=== PATIENT | female | born 1940 | race Caucasian/White ===

== ENCOUNTER → 2016-09-06 | Day surgery (SDC) | payer MEDICARE, OTHER ==
[~2016-09-06] VITALS: Ht 162.6 cm; Wt 74.8 kg
[~2016-09-06] MED LIST: /WARF25TA; ACETAMINOPHEN 325 MG TAB PO PRN; AMLO2.5T PO; ASPI1TAB PO; ASPI81TA83 OR; AcetaZOLAMIDE 500 MG ER CAP PO ONE; BSS with VANC/TOB/EPI for EYE CASES IR ONE; CALC600T10 PO; CALCTAB22 OR; CYCLOPENTOLATE 2% OPHTH SOLN 2ML BTL As Ordered ONE; CYCLOPENTOLATE 2% OPHTH SOLN 2ML BTL OS ONE; D5W/0.2% SODIUM CHLORIDE 250 ML IV ONE; HEALON DUET (HEALON 10MG/ML 0.55ML & HEALON ENDOCOAT 30MG/ML 0.85ML) As Ordered ONE; INDA125TA PO; KETOROLAC 0.5% OPHTH SOLN OS ONE; LIDOCAINE 1% SDV 5 ML VIAL As Ordered ONE; LIDOCAINE 4% INJ 5 ML AMP OU ONE; MELO15TA4 PO; MELOPOW OR; MIDAZOLAM INJ 2 MG/2 ML VIAL (J2250) As Ordered ONE; MOXIFLOXACIN IN BSS 0.25MG/0.25ML INTRACAMERAL INJ (OR EYE ONLY)(J2280) As Ordered ONE; MULT1TAB10 PO; MULTIVIT OR; OCEAN; OFLOXACIN 0.3 % (OCUFLOX) OPTH SOL 5ML As Ordered ONE; OFLOXACIN 0.3 % (OCUFLOX) OPTH SOL 5ML OS ONE; OMEP40CA2 PO; OYST500T; PERC5TAB8; PHENYLEPHRINE 2.5% OPHTH SOL 2ML As Ordered ONE; PHENYLEPHRINE 2.5% OPHTH SOL 2ML OS ONE; POVIDONE-IODINE 5% OPHTH PREP SOL 30ML As Ordered ONE; PROPARACAINE 0.5% OPHTH SOL 15ML OS PRN; THERGRAN; TRIAMCINOLONE PRES FR 40 MG/ML 1ML(TRIESENCE)(OR EYE ONLY)(J3300 PER 1MG) As Ordered ONE; TRIMETHOBENZAMIDE 300 MG CAP PO PRN; TROPICAMIDE 1% OPHTH SOLN 2ML As Ordered ONE; TROPICAMIDE 1% OPHTH SOLN 2ML OS ONE; TYL325; ZANT150T; ZANT150T OR; ZETI10TA; ZETI10TA OR; fentaNYL 100 MCG/2 ML INJECTION (J3010) As Ordered ONE
[2016-09-06 11:50] VITALS: BP 144/63
== END | disposition home or self-care (01) ==
LOC: M SDC 08:45
PROVIDERS: ATTEND Ophthalmology
DX: H26.9 Unspecified cataract (principal); I13.0 Hypertensive heart and chronic kidney disease with heart failure and stage 1 through stage 4 chronic kidney disease, or unspecified chronic kidney disease; E78.00 Pure hypercholesterolemia, unspecified; R60.0 Localized edema; K21.9 Gastro-esophageal reflux disease without esophagitis; D63.1 Anemia in chronic kidney disease; N18.3 Chronic kidney disease, stage 3 (moderate); R29.898 Other symptoms and signs involving the musculoskeletal system; M12.9 Arthropathy, unspecified; M54.2 Cervicalgia; Z88.8 Allergy status to other drugs, medicaments and biological substances; Z79.899 Other long term (current) drug therapy; Z79.82 Long term (current) use of aspirin; Z90.710 Acquired absence of both cervix and uterus; Z96.1 Presence of intraocular lens; Z96.653 Presence of artificial knee joint, bilateral; Z85.3 Personal history of malignant neoplasm of breast
CPT/HCPCS: 66984; J2250; J2280; J3010; J3300; V2632

== ENCOUNTER → 2016-09-15 | Outpatient (REF) | payer MEDICARE, OTHER ==
[~2016-09-15] MED LIST changes: -ACETAMINOPHEN 325 MG TAB PO PRN; -AcetaZOLAMIDE 500 MG ER CAP PO ONE; -BSS with VANC/TOB/EPI for EYE CASES IR ONE; -CYCLOPENTOLATE 2% OPHTH SOLN 2ML BTL As Ordered ONE; -CYCLOPENTOLATE 2% OPHTH SOLN 2ML BTL OS ONE; -D5W/0.2% SODIUM CHLORIDE 250 ML IV ONE; -HEALON DUET (HEALON 10MG/ML 0.55ML & HEALON ENDOCOAT 30MG/ML 0.85ML) As Ordered ONE; -KETOROLAC 0.5% OPHTH SOLN OS ONE; -LIDOCAINE 1% SDV 5 ML VIAL As Ordered ONE; -LIDOCAINE 4% INJ 5 ML AMP OU ONE; -MIDAZOLAM INJ 2 MG/2 ML VIAL (J2250) As Ordered ONE; -MOXIFLOXACIN IN BSS 0.25MG/0.25ML INTRACAMERAL INJ (OR EYE ONLY)(J2280) As Ordered ONE; -OFLOXACIN 0.3 % (OCUFLOX) OPTH SOL 5ML As Ordered ONE; -OFLOXACIN 0.3 % (OCUFLOX) OPTH SOL 5ML OS ONE; -PHENYLEPHRINE 2.5% OPHTH SOL 2ML As Ordered ONE; -PHENYLEPHRINE 2.5% OPHTH SOL 2ML OS ONE; -POVIDONE-IODINE 5% OPHTH PREP SOL 30ML As Ordered ONE; -PROPARACAINE 0.5% OPHTH SOL 15ML OS PRN; -TRIAMCINOLONE PRES FR 40 MG/ML 1ML(TRIESENCE)(OR EYE ONLY)(J3300 PER 1MG) As Ordered ONE; -TRIMETHOBENZAMIDE 300 MG CAP PO PRN; -TROPICAMIDE 1% OPHTH SOLN 2ML As Ordered ONE; -TROPICAMIDE 1% OPHTH SOLN 2ML OS ONE; -fentaNYL 100 MCG/2 ML INJECTION (J3010) As Ordered ONE
[2016-09-16 09:26] LABS: TOTAL PROTEIN 8.1 GM/DL (6.4-8.2)
[2016-09-16 11:58] LABS: ALBUMIN 4.44 GM/DL (3.29-5.55); ALBUMIN % 54.8 % (55.8-66.1); GAMMA GLOBULIN % 15.6 % (11.1-18.8)
[2016-09-24 00:06] LABS: BETA 2 MICROGLOBULIN 3.2 mg/L (0.6-2.4); FREE KAPPA LIGHT CHAINS SERUM 41.8 mg/L (3.3-19.4); FREE LAMBDA LIGHT CHAINS SERUM 64.3 mg/L (5.7-26.3); KAPPA/LAMBDA RATIO SERUM 0.65 (0.26-1.65)
== END ==
LOC: M LAB REF 16:16
PROVIDERS: ATTEND Internal Medicine Medical Oncology
DX: D47.2 Monoclonal gammopathy (principal)

== ENCOUNTER → 2016-09-15 | Outpatient (CLI) | payer MEDICARE, OTHER ==
--- NOTE | 2016-09-15 16:54 | REP ---
BONE SURVEY: Multiple images are obtained of the skeletal system as part of a bone survey. AP and lateral views of the skull are performed. No fracture or bone lesion is seen. AP and lateral views of the cervical spine are performed. There is no compression fracture. No bone lesions are seen. There is mild to moderate spurring of C4 through C7 with moderate intervening disc space narrowing at C4-5 through C6-7 with subchondral sclerosis. There is diffuse sclerosis of the posterior facet joints. AP and lateral views of the thoracic spine are performed. There is no compression of the thoracic vertebral bodies. There is normal thoracic kyphosis and alignment. There are mild diffuse degenerative disc changes with mild disc space narrowing and subchondral sclerosis at multiple levels. Posterior elements are intact. There is mild curvature towards the right. AP and lateral views of the lumbar spine are performed. There is no compression fracture. There is mild anterior spondylolisthesis of L3 on L4 which appears to be due to posterior facet arthropathy. No definite bone lesions are seen. There is mild narrowing of L3-4 with moderate narrowing, subchondral sclerosis, and vacuum at L4-5 and L5-S1. There is diffuse sclerosis and spurring at the posterior facet joints. Posterior elements appear to be intact. There is mild curvature towards the left. AP view of the pelvis demonstrates no evidence of a bone lesion of fracture. AP view of the right femur is performed. No fracture or bone lesion is seen. 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 AP and lateral views of left femur are performed. No fracture or bone lesion is seen. There is a total left knee prosthesis. AP views of both humeri are performed. Right humerus demonstrates no fracture or bone lesion. Left humerus demonstrates two rounded lucent areas with thin sclerotic borders, 1 in the superior aspect of the humeral head measuring 9 mm in diameter and the other more inferiorly in the region of the humeral neck measuring 6 mm in diameter. Given the sharp zone of transition and thin sclerotic border to both of these lesions, these appear benign. AP view of chest and ribs demonstrate no definite fracture or bone lesion. IMPRESSION: 1. Skeletal survey demonstrates degenerative changes throughout the spine. 2. Two small subcentimeter round lucencies in the proximal left humerus have thin sclerotic borders and are most consistent with benign lesions. No other evidence of bone lesion. Signed by Mina Camacho MD 09/15/2016 08:06 P
== END ==
LOC: M RAD 15:06
PROVIDERS: ATTEND Internal Medicine Medical Oncology
DX: D47.2 Monoclonal gammopathy (principal)

== ENCOUNTER → 2016-11-07 | Outpatient (CLI) | payer MEDICARE, OTHER ==
[~2016-11-07] MED LIST changes: -CALC600T10 PO; +CALC600T31 PO
--- NOTE | 2016-11-07 15:19 | REP ---
LEFT BREAST DIGITAL SCREENING MAMMOGRAM: 11/07/2016. Comparison: 11/05/2015, 11/01/2014, 10/22/2013. Clinical history: Screening examination. She has no current breast complaint. Has a personal history of right mastectomy for breast carcinoma many years ago. No family history of breast cancer. Findings: The breast parenchyma show scattered heterogeneously dense fibroglandular elements in a pattern and distribution unchanged from the multiple prior studies. Scattered small benign appearing calcifications are present of doubtful clinical significance. No dominant masses, suspicious cluster of microcalcifications or secondary signs of malignancy are seen. Mole marker overlies the noon position toward the upper outer quadrant left breast. Impression 1. BI-RADS ACR category 2, mammogram. Benign findings. Stable examination. 2. Follow-up mammogram recommended in 1 year. This mammogram was interpreted with the aid of an FDA-approved computer-aided detection system. The patient states she/he had a clinical breast exam in 11/2015. The patient letter being requested is M1 dense. Signed by Amrit Mesa MD 11/07/2016 09:22 P
== END ==
LOC: M RAD 09:37
PROVIDERS: ATTEND Internal Medicine Medical Oncology
DX: Z12.31 Encounter for screening mammogram for malignant neoplasm of breast (principal); Z85.3 Personal history of malignant neoplasm of breast

== ENCOUNTER → 2016-12-28 | Outpatient (REF) | payer MEDICARE, OTHER ==
[2016-12-28 17:36] LABS: ALBUMIN 3.5 GM/DL (3.2-5.2); ALBUMIN/GLOBULIN RATIO 0.95 (1.00-1.93); BILIRUBIN,DIRECT 0.1 MG/DL (0.0-0.2); BILIRUBIN,TOTAL 0.5 MG/DL (0.2-1.0); CALCIUM LEVEL 8.9 MG/DL (8.8-10.2); CREATININE FOR GFR 1.13 MG/DL (0.55-1.02); GLOMERULAR FILTRATION RATE 49.6 (>39); PHOSPHORUS LEVEL 3.5 MG/DL (2.5-4.9); POTASSIUM SERUM 3.9 MEQ/L (3.5-5.1); TOTAL PROTEIN 7.2 GM/DL (6.4-8.2)
== END ==
LOC: M LABDRAWC 16:32
PROVIDERS: ATTEND Physician Assistant
DX: M51.37 Other intervertebral disc degeneration, lumbosacral region (principal)

== ENCOUNTER → 2017-01-24 | Outpatient (REF) | payer MEDICARE, OTHER ==
[2017-01-24 18:16] LABS: BASO % 0.3 % (0.0-1.0); EOS # 0.1 10^3/uL (0.0-0.50); IMMATURE GRANULOCYTE % 0.2 % (0-0); LYMPH # 2.1 10^3/uL (1.5-4.5); LYMPH % 34.6 % (24.0-44.0); MEAN CORPUSCULAR HEMOGLOBIN 30.7 pg (27.0-33.0); MEAN CORPUSCULAR HGB CONC 31.9 g/dl (32.0-36.5); MEAN CORPUSCULAR VOLUME 96.2 fl (80.0-96.0); MONO # 0.6 10^3/uL (0.0-0.8); NEUTROPHILS # 3.3 10^3/uL (1.8-7.7); NEUTROPHILS % 53.9 % (36.0-66.0); PLATELET COUNT, AUTOMATED 246 10^3/uL (150-450); RED CELL DISTRIBUTION WIDTH 11.9 % (11.5-14.5); WHITE BLOOD COUNT 6.1 10^3/uL (4.0-10.0)
[2017-01-24 19:13] LABS: ALBUMIN 3.6 GM/DL (3.2-5.2); ALBUMIN/GLOBULIN RATIO 0.95 (1.00-1.93); ALKALINE PHOSPHATASE 74 U/L (45-117); ALT/SGPT 24 U/L (12-78); ANION GAP 8 MEQ/L (8-16); AST/SGOT 15 U/L (15-37); BILIRUBIN,TOTAL 0.5 MG/DL (0.2-1.0); BLOOD UREA NITROGEN 29 MG/DL (7-18); CALCIUM LEVEL 9.3 MG/DL (8.8-10.2); CARBON DIOXIDE LEVEL 27 MEQ/L (21-32); CHLORIDE LEVEL 100 MEQ/L (98-107); CREATININE FOR GFR 1.28 MG/DL (0.55-1.02); GLOMERULAR FILTRATION RATE 42.9 (>39); GLUCOSE, FASTING 81 MG/DL (83-110); IMMUNOGLOBULIN A 62.3 MG/DL (70-400); IMMUNOGLOBULIN G 767 MG/DL (681-1648); IMMUNOGLOBULIN M 1280 MG/DL (40-230); POTASSIUM SERUM 4.4 MEQ/L (3.5-5.1); SODIUM LEVEL 135 MEQ/L (136-145); TOTAL PROTEIN 7.4 GM/DL (6.4-8.2)
[2017-01-24 20:38] LABS: REASON FOR REVIEW COMPREHENSIVE REVIEW
[2017-01-26 11:09] LABS: ALBUMIN 4.11 GM/DL (3.29-5.55); ALBUMIN % 55.5 % (55.8-66.1); GAMMA GLOBULIN % 14.6 % (11.1-18.8)
== END ==
LOC: M LAB REF 17:05
PROVIDERS: ATTEND Internal Medicine Medical Oncology
DX: D47.2 Monoclonal gammopathy (principal)

== ENCOUNTER → 2017-06-20 | Outpatient (REF) | payer MEDICARE, OTHER ==
[2017-06-20 18:12] LABS: BASO % 0.4 % (0.0-1.0); EOS # 0.2 10^3/uL (0.0-0.50); EOS % 2.4 % (0.0-3.0); HEMATOCRIT 34.2 % (36.0-47.0); HEMOGLOBIN 10.8 g/dl (12.0-16.0); IMMATURE GRANULOCYTE % 0.3 % (0-3.0); LYMPH # 2.1 10^3/uL (1.5-4.5); LYMPH % 27.8 % (24.0-44.0); MEAN CORPUSCULAR HEMOGLOBIN 30.2 pg (27.0-33.0); MEAN CORPUSCULAR HGB CONC 31.6 g/dl (32.0-36.5); MEAN CORPUSCULAR VOLUME 95.5 fl (80.0-96.0); MONO # 0.6 10^3/uL (0.0-0.8); NEUTROPHILS # 4.5 10^3/uL (1.8-7.7); NEUTROPHILS % 61.1 % (36.0-66.0); PLATELET COUNT, AUTOMATED 236 10^3/uL (150-450); RED BLOOD COUNT 3.58 10^6/uL (4.00-5.40); WHITE BLOOD COUNT 7.4 10^3/uL (4.0-10.0)
[2017-06-20 19:00] LABS: ALBUMIN 3.7 GM/DL (3.2-5.2); ALBUMIN/GLOBULIN RATIO 0.95 (1.00-1.93); ALKALINE PHOSPHATASE 102 U/L (45-117); ALT/SGPT 37 U/L (12-78); ANION GAP 8 MEQ/L (8-16); AST/SGOT 16 U/L (7-37); BILIRUBIN,TOTAL 0.5 MG/DL (0.2-1.0); BLOOD UREA NITROGEN 29 MG/DL (7-18); CALCIUM LEVEL 8.8 MG/DL (8.8-10.2); CARBON DIOXIDE LEVEL 27 MEQ/L (21-32); CHLORIDE LEVEL 103 MEQ/L (98-107); CREATININE FOR GFR 1.25 MG/DL (0.55-1.30); GLUCOSE, FASTING 99 MG/DL (70-100); IMMUNOGLOBULIN A 59.2 MG/DL (70-400); IMMUNOGLOBULIN G 811 MG/DL (681-1648); IMMUNOGLOBULIN M 1370 MG/DL (40-230); SODIUM LEVEL 138 MEQ/L (136-145); TOTAL PROTEIN 7.6 GM/DL (6.4-8.2)
== END ==
LOC: M LABDRAWC 17:24
DX: C88.0 Waldenstrom macroglobulinemia (principal)
CPT/HCPCS: 80053

== ENCOUNTER → 2017-11-08 | Outpatient (CLI) | payer MEDICARE, OTHER | LOC: M RAD 10:04 | DX: Z12.31 Encounter for screening mammogram for malignant neoplasm of breast (principal); Z85.3 Personal history of malignant neoplasm of breast; Z90.11 Acquired absence of right breast and nipple | CPT/HCPCS: 77067 ==

== ENCOUNTER → 2017-11-28 | Outpatient (REF) | payer MEDICARE, OTHER ==
[2017-11-28 20:34] LABS: BLOOD UREA NITROGEN 35 MG/DL (7-18)
[2017-11-28 20:34] LABS: CREATININE FOR GFR 1.38 MG/DL (0.55-1.30); GLOMERULAR FILTRATION RATE 39.3 (>39)
== END ==
LOC: M LAB REF 19:57
DX: M51.37 Other intervertebral disc degeneration, lumbosacral region (principal)
CPT/HCPCS: 82565

== ENCOUNTER → 2018-01-31 | Outpatient (REF) | payer MEDICARE, OTHER ==
[2018-01-31 17:32] LABS: BASO % 0.7 % (0.0-1.0); EOS # 0.1 10^3/uL (0.0-0.50); EOS % 2.2 % (0.0-3.0); HEMATOCRIT 32.8 % (36.0-47.0); HEMOGLOBIN 10.8 g/dl (12.0-15.5); IMMATURE GRANULOCYTE % 0.3 % (0-3.0); LYMPH # 1.8 10^3/uL (1.5-4.5); LYMPH % 30.7 % (24.0-44.0); MEAN CORPUSCULAR HGB CONC 32.9 g/dl (32.0-36.5); MEAN CORPUSCULAR VOLUME 94.3 fl (80.0-96.0); MONO # 0.6 10^3/uL (0.0-0.8); MONO % 10.6 % (0.0-5.0); NEUTROPHILS # 3.3 10^3/uL (1.8-7.7); NEUTROPHILS % 55.5 % (36.0-66.0); PLATELET COUNT, AUTOMATED 256 10^3/uL (150-450); RED BLOOD COUNT 3.48 10^6/uL (4.00-5.40); RED CELL DISTRIBUTION WIDTH 11.9 % (11.5-14.5); WHITE BLOOD COUNT 5.9 10^3/uL (4.0-10.0)
[2018-01-31 18:14] LABS: IMMUNOGLOBULIN G 879 MG/DL (681-1648); IMMUNOGLOBULIN M 1490 MG/DL (40-230)
[2018-02-06 08:06] LABS: SERUM VISCOSITY 1.9 rel.saline (1.6-1.9)
[2018-02-06 08:06] LABS: FREE KAPPA LIGHT CHAINS SERUM 36.9 mg/L (3.3-19.4); FREE LAMBDA LIGHT CHAINS SERUM 64.4 mg/L (5.7-26.3); KAPPA/LAMBDA RATIO SERUM 0.57 (0.26-1.65)
== END ==
LOC: M LABDRAWC 10:48
DX: Z85.3 Personal history of malignant neoplasm of breast (principal)
CPT/HCPCS: 82784

== ENCOUNTER → 2018-05-31 | Outpatient (CLI) | payer MEDICARE, OTHER ==
[~2018-05-31] MED LIST changes: -AMLO2.5T PO; +AMLO2.5T3 PO; +AMOX500C PO; +CELE1CAP7 PO; +MELO15TA28 PO; -MELO15TA4 PO
--- NOTE | 2018-06-01 06:45 | EEG ---
DATE OF PROCEDURE: 05/31/2018 REFERRING PHYSICIAN: Gerri Whitlock DIAGNOSIS: Syncope with incontinence. EE HISTORY: The patient is an 78-year-old woman who had an episode of syncope, collapse with incontinence. She started feeling dizzy as if she would pass out and her son helped her get in the chair, but the patient leaned backwards, passed out and fell sideways out of the chair. She had urinary incontinence. The patient was mumbling, "I am listening to music in my head". This EEG was done to rule out epileptic potential. She is currently taking amlodipine, indapamide, Prilosec, Celebrex, aspirin. INTERPRETATION: The patient was noted to be in awake and drowsy states during this EEG. Resting awake background rhythm consisted of 8 Hz alpha activity measuring 5-15 microvolts in amplitude which was symmetric and reactive to eye opening. Stage I and II sleep were reviewed. Sleep activity was symmetric bilaterally. Hyperventilation and photic stimulation remained unremarkable. EKG revealed normal sinus rhythm. No focal, lateralizing or epileptiform abnormalities were seen. No clinical or electrographic seizures were recorded. CONCLUSION: This EEG in awake, drowsy states, stage I and II sleep is within normal limits. Low voltage background activity is likely related to the patient's age.
== END ==
LOC: M SLEEP 07:59
PROVIDERS: ATTEND Nurse Practitioner Adult Health
DX: R55 Syncope and collapse (principal)

== ENCOUNTER → 2018-07-20 | Outpatient (REF) | payer MEDICARE, OTHER ==
[~2018-07-20] MED LIST changes: -/WARF25TA; -ASPI1TAB PO; +ASPI81TA26 PO; +COUM1TAB18
[2018-07-20 11:38] LABS: BASO % 0.6 % (0.0-1.0); EOS # 0.1 10^3/uL (0.0-0.50); EOS % 2.8 % (0.0-3.0); HEMATOCRIT 33.4 % (36.0-47.0); HEMOGLOBIN 10.9 g/dl (12.0-15.5); LYMPH % 39.9 % (24.0-44.0); MEAN CORPUSCULAR HEMOGLOBIN 31.1 pg (27.0-33.0); MEAN CORPUSCULAR HGB CONC 32.6 g/dl (32.0-36.5); MEAN CORPUSCULAR VOLUME 95.2 fl (80.0-96.0); MONO # 0.5 10^3/uL (0.0-0.8); MONO % 9.3 % (0.0-5.0); NEUTROPHILS # 2.3 10^3/uL (1.8-7.7); PLATELET COUNT, AUTOMATED 292 10^3/uL (150-450); RED BLOOD COUNT 3.51 10^6/uL (4.00-5.40)
[2018-07-20 12:05] LABS: ALBUMIN 3.6 GM/DL (3.2-5.2); ALT/SGPT 28 U/L (12-78); BILIRUBIN,TOTAL 0.5 MG/DL (0.2-1.0); BLOOD UREA NITROGEN 39 MG/DL (7-18); CALCIUM LEVEL 8.8 MG/DL (8.8-10.2); CARBON DIOXIDE LEVEL 25 MEQ/L (21-32); CHLORIDE LEVEL 103 MEQ/L (98-107); GLUCOSE, FASTING 77 MG/DL (70-100); POTASSIUM SERUM 4.1 MEQ/L (3.5-5.1); SODIUM LEVEL 136 MEQ/L (136-145); TOTAL PROTEIN 7.7 GM/DL (6.4-8.2)
[2018-07-20 20:10] LABS: IMMUNOGLOBULIN A 56.1 MG/DL (70-400); IMMUNOGLOBULIN G 882 MG/DL (681-1648)
[2018-07-24 08:25] LABS: FREE KAPPA LIGHT CHAINS SERUM 53.4 mg/L (3.3-19.4); FREE LAMBDA LIGHT CHAINS SERUM 59.1 mg/L (5.7-26.3); KAPPA/LAMBDA RATIO SERUM 0.9 (0.26-1.65); SERUM VISCOSITY 2.1 rel.saline (1.6-1.9)
[2018-07-24 11:06] LABS: ALBUMIN % 54.6 % (55.8-66.1); ALPHA-1-GLOBULIN % 3.7 % (2.9-4.9); ALPHA-1-GLOBULINS 0.28 GM/DL (0.17-0.41); ALPHA-2-GLOBULINS 0.75 GM/DL (0.42-0.99); ALPHA-2-GLOBULINS % 9.8 % (7.1-11.8); BETA-1-GLOBULINS 0.58 GM/DL (0.28-0.60); BETA-1-GLOBULINS % 7.5 % (4.7-7.2); BETA-2-GLOBULINS 0.52 GM/DL (0.19-0.55); BETA-2-GLOBULINS % 6.8 % (3.2-6.5); GAMMA GLOBULIN % 17.6 % (11.1-18.8); GAMMA GLOBULINS 1.36 GM/DL (0.65-1.58)
== END ==
LOC: M LABDRAWC 09:18
PROVIDERS: ATTEND Internal Medicine Hematology & Oncology
DX: D47.2 Monoclonal gammopathy (principal)

== ENCOUNTER → 2018-11-14 | Outpatient (CLI) | payer MEDICARE, OTHER ==
[~2018-11-14] MED LIST changes: +CALCTAB89 PO; +MULTTAB61 PO
--- NOTE | 2018-11-14 11:27 | REP ---
UNILATERAL MAMMOGRAM, LEFT BREAST WITH 3D TOMOSYNTHESIS: HISTORY: Right breast cancer and mastectomy. No family history of breast cancer. COMPARISON: 11/08/2017 as well as other prior exams. MLO and CC views of the left breast performed with 3D tomosynthesis. Moderate fibroglandular tissue is unchanged in its pattern with no new mass or architectural disorder. No clustered microcalcifications are seen. Small axillary lymph nodes are present. IMPRESSION: BIRADS 1: BI-RADS/ACR category 1 mammogram. Negative Mammogram. ACR 1 negative mammogram left breast in this patient status post right mastectomy. Suggest followup mammogram in 1 year. This mammogram was interpreted with the aid of an FDA-approved computer-aided detection system. The patient states that she or he has not had a clinical breast exam in over a year. Patient letter being requested is M1.? Electronically Signed by Mina Camacho MD 11/15/2018 12:31 A
== END ==
LOC: M RAD 10:03
PROVIDERS: ATTEND Internal Medicine
DX: Z12.31 Encounter for screening mammogram for malignant neoplasm of breast (principal); Z85.3 Personal history of malignant neoplasm of breast; Z90.11 Acquired absence of right breast and nipple

== ENCOUNTER → 2018-12-04 | Outpatient (REF) | payer OTHER ==
[2018-12-04 16:47] LABS: CALCIUM LEVEL 9.7 MG/DL (8.8-10.2); CREATININE FOR GFR 1.46 MG/DL (0.55-1.30); GLOMERULAR FILTRATION RATE 36.7 (>32); POTASSIUM SERUM 4.6 MEQ/L (3.5-5.1)
[2018-12-04 16:49] LABS: BASO % 0.6 % (0.0-1.0); EOS # 0.1 10^3/uL (0.0-0.50); EOS % 2.1 % (0.0-3.0); HEMATOCRIT 31.7 % (36.0-47.0); HEMOGLOBIN 10.3 g/dl (12.0-15.5); LYMPH # 2.2 10^3/uL (1.5-4.5); LYMPH % 41.8 % (24.0-44.0); MEAN CORPUSCULAR HEMOGLOBIN 31.6 pg (27.0-33.0); MEAN CORPUSCULAR HGB CONC 32.5 g/dl (32.0-36.5); MEAN CORPUSCULAR VOLUME 97.2 fl (80.0-96.0); MONO # 0.6 10^3/uL (0.0-0.8); MONO % 11.3 % (0.0-5.0); NEUTROPHILS # 2.3 10^3/uL (1.8-7.7); NEUTROPHILS % 43.8 % (36.0-66.0); PLATELET COUNT, AUTOMATED 260 10^3/uL (150-450); RED BLOOD COUNT 3.26 10^6/uL (4.00-5.40); WHITE BLOOD COUNT 5.2 10^3/uL (4.0-10.0)
== END ==
LOC: M LABDRAWC 16:02
PROVIDERS: ATTEND Physician Assistant
DX: M47.816 Spondylosis without myelopathy or radiculopathy, lumbar region (principal); M51.37 Other intervertebral disc degeneration, lumbosacral region

== ENCOUNTER → 2019-01-23 | Outpatient (REF) | payer OTHER ==
[~2019-01-23] MED LIST changes: -OMEP40CA2 PO; +OMEP40CA97 PO
[2019-01-23 16:46] LABS: BASO % 0.7 % (0.0-1.0); EOS # 0.1 10^3/uL (0.0-0.5); EOS % 1.5 % (0.0-3.0); HEMATOCRIT 32.6 % (36.0-47.0); HEMOGLOBIN 10.5 g/dl (12.0-15.5); LYMPH # 1.8 10^3/uL (1.5-5.0); LYMPH % 32.5 % (24.0-44.0); MEAN CORPUSCULAR HEMOGLOBIN 32.3 pg (27.0-33.0); MEAN CORPUSCULAR HGB CONC 32.2 g/dl (32.0-36.5); MEAN CORPUSCULAR VOLUME 100.3 fl (80.0-96.0); MONO # 0.5 10^3/uL (0.0-0.8); MONO % 9.9 % (0.0-5.0); NEUTROPHILS % 55.2 % (36.0-66.0); PLATELET COUNT, AUTOMATED 222 10^3/uL (150-450); RED BLOOD COUNT 3.25 10^6/uL (4.00-5.40); WHITE BLOOD COUNT 5.5 10^3/uL (4.0-10.0)
[2019-01-23 17:26] LABS: ALBUMIN 3.5 GM/DL (3.2-5.2); ALT/SGPT 22 U/L (12-78); BILIRUBIN,TOTAL 0.5 MG/DL (0.2-1.0); BLOOD UREA NITROGEN 29 MG/DL (7-18); CALCIUM LEVEL 9.7 MG/DL (8.8-10.2); CARBON DIOXIDE LEVEL 28 MEQ/L (21-32); CHLORIDE LEVEL 102 MEQ/L (98-107); CREATININE FOR GFR 1.44 MG/DL (0.55-1.30); GLOMERULAR FILTRATION RATE 37.3 (>32); GLUCOSE, FASTING 75 MG/DL (70-100); IMMUNOGLOBULIN A 59.3 MG/DL (70-400); IMMUNOGLOBULIN G 965 MG/DL (681-1648); POTASSIUM SERUM 3.9 MEQ/L (3.5-5.1); SODIUM LEVEL 137 MEQ/L (136-145); TOTAL PROTEIN 7.7 GM/DL (6.4-8.2)
[2019-01-24 12:34] LABS: ALBUMIN 4.12 GM/DL (3.29-5.55); ALBUMIN % 53.5 % (55.8-66.1); ALPHA-1-GLOBULIN % 4.2 % (2.9-4.9); ALPHA-1-GLOBULINS 0.32 GM/DL (0.17-0.41); ALPHA-2-GLOBULINS 0.82 GM/DL (0.42-0.99); ALPHA-2-GLOBULINS % 10.7 % (7.1-11.8); BETA-1-GLOBULINS 0.58 GM/DL (0.28-0.60); BETA-1-GLOBULINS % 7.5 % (4.7-7.2); BETA-2-GLOBULINS 0.67 GM/DL (0.19-0.55); BETA-2-GLOBULINS % 8.7 % (3.2-6.5); GAMMA GLOBULIN % 15.4 % (11.1-18.8); GAMMA GLOBULINS 1.19 GM/DL (0.65-1.58)
[2019-01-26 00:07] LABS: FREE KAPPA LIGHT CHAINS SERUM 52.1 mg/L (3.3-19.4); FREE LAMBDA LIGHT CHAINS SERUM 61.3 mg/L (5.7-26.3); KAPPA/LAMBDA RATIO SERUM 0.85 (0.26-1.65); SERUM VISCOSITY 1.8 rel.saline (1.6-1.9)
== END ==
LOC: M LABDRAWC 16:14
PROVIDERS: ATTEND Nurse Practitioner Family
DX: D47.2 Monoclonal gammopathy (principal)

== ENCOUNTER 2019-03-28 14:54 | Emergency (ER) | payer MEDICARE, OTHER ==
[~2019-03-28] VITALS: Ht 162.6 cm; Wt 79.5 kg
[2019-03-28] MEDS ORDERED: EXCEDRIN MIGRAINE TABLET PO ONE (16:00)
[2019-03-28] MEDS ORDERED: NORC1TAB7 PO (17:14)
[2019-03-28] MEDS ORDERED: APAP325T4 PO (17:14)
[2019-03-28] MEDS ORDERED: NORCO, ANEXSIA 5/325MG TABLET (HYDROcodone/ACETAMINOPHEN) PO ONE (17:30)
[2019-03-28] MEDS ORDERED: NS 1,000 ML IV ONE (18:45)
--- NOTE | 2019-03-28 19:08 | REP ---
CT lumbar spine: 03/28/2019. Indication: Lumbar spine trauma. Comparison: None. Technique: Unenhanced axial CT images of the lumbar spine were performed with coronal and sagittal reconstructions provided. Findings: There is no acute fracture, subluxation or dislocation. Disc space narrowing, vacuum disc phenomenon and endplate degenerative sequelae are present at L3/L4, L4/L5 and L5/S1. There is levoscoliosis of the lumbar spine with the convexity centered at L3. There is minimal anterolisthesis of L3 on L4 secondary to facet arthropathy. Multilevel spondylosis is present with severe narrowing of the spinal canal at L3/L4 and on the left at L4/L5. Aortoiliac atherosclerosis is noted. Impression: No acute osseous injury of the lumbar spine. Advanced degenerative sequelae most pronounced at L3/L4. Scoliosis. Electronically Signed by Jesse Thomas DO 03/28/2019 04:14 P
--- NOTE | 2019-03-28 19:09 | REP ---
Three views pelvis and left hip: 03/28/2019. Indication: Hip pain following fall. Comparison: None. Findings: There is no acute fracture, subluxation or dislocation. No lytic or blastic lesions are present. Arthritic sequelae of the hips bilaterally are noted. Impression: No acute fracture. Electronically Signed by Jesse Thomas DO 03/28/2019 04:30 P
--- NOTE | 2019-03-28 19:09 | REP ---
Four views right hand: 03/28/2019. Indication: Right hand trauma. Comparison: None. Findings: There is no acute fracture, subluxation or dislocation. Diffuse osteopenia is present. Osteoarthritic sequelae are present most pronounced within the second distal PIP. Impression: No acute fracture. Electronically Signed by Jesse Thomas DO 03/28/2019 04:27 P
--- NOTE | 2019-03-28 19:25 | REP ---
CT CHEST WITHOUT IV CONTRAST: CT chest performed without IV contrast. Sagittal and coronal reconstruction images are performed. The lung shows scattered fibrotic changes. Postsurgical change is seen in the right upper lobe with focal bullous change. There is no pneumothorax. No axillary or mediastinal adenopathy is seen. There is no thoracic aortic aneurysm. There is no pleural or pericardial effusion. Heart is mildly enlarged. There is a small hiatal hernia. There is no evidence of a rib fracture. There are mild degenerative changes of the spine. There is mild compression of T12 vertebral body without retropulsion. A small gallstone is seen in the gallbladder without gallbladder wall edema. IMPRESSION: No evidence of rib fracture. Fibrotic changes in the lungs. Mild compression of T12 with no retropulsion of fragments into the spinal canal. Small gallstone in the gallbladder. Electronically Signed by Mina Camacho MD 03/29/2019 04:40 P
[2019-03-28 19:33] LABS: HEMATOCRIT 32.4 % (36.0-47.0); HEMOGLOBIN 10.5 g/dl (12.0-15.5); MEAN CORPUSCULAR HEMOGLOBIN 31.5 pg (27.0-33.0); MEAN CORPUSCULAR HGB CONC 32.4 g/dl (32.0-36.5); MEAN CORPUSCULAR VOLUME 97.3 fl (80.0-96.0); PLATELET COUNT, AUTOMATED 309 10^3/uL (150-450); RED BLOOD COUNT 3.33 10^6/uL (4.00-5.40); WHITE BLOOD COUNT 11.4 10^3/uL (4.0-10.0)
[2019-03-28 19:48] LABS: CALCIUM LEVEL 9.2 MG/DL (8.8-10.2); CREATININE FOR GFR 1.74 MG/DL (0.55-1.30); POTASSIUM SERUM 4.2 MEQ/L (3.5-5.1)
[2019-03-28 21:00] VITALS: BP 129/62
[2019-03-28] MEDS ORDERED: TRAM50TA2 PO (21:01)
== END 2019-03-28 21:41 | disposition home or self-care (01) ==
LOC: EDBD 14:54 → M ED 14:54
DX: S22.080A Wedge compression fracture of T11-T12 vertebra, initial encounter for closed fracture (principal); W01.0XXA Fall on same level from slipping, tripping and stumbling without subsequent striking against object, initial encounter; Y92.89 Other specified places as the place of occurrence of the external cause; I10 Essential (primary) hypertension; E78.5 Hyperlipidemia, unspecified; Z79.899 Other long term (current) drug therapy; Z79.82 Long term (current) use of aspirin; Z88.8 Allergy status to other drugs, medicaments and biological substances

== ENCOUNTER → 2019-07-24 | Outpatient (REF) | payer MEDICARE, OTHER ==
[~2019-07-24] MED LIST changes: +APAP325T4 PO; +NORC1TAB7 PO; +TRAM50TA2 PO
[2019-07-24 16:30] LABS: BASO % 0.7 % (0.0-1.0); EOS # 0.2 10^3/uL (0.0-0.5); EOS % 3.2 % (0.0-3.0); HEMATOCRIT 32.7 % (36.0-47.0); HEMOGLOBIN 10.6 g/dl (12.0-15.5); LYMPH % 37.6 % (24.0-44.0); MEAN CORPUSCULAR HEMOGLOBIN 31.3 pg (27.0-33.0); MEAN CORPUSCULAR HGB CONC 32.4 g/dl (32.0-36.5); MEAN CORPUSCULAR VOLUME 96.5 fl (80.0-96.0); MONO # 0.5 10^3/uL (0.0-0.8); MONO % 10.1 % (0.0-5.0); NEUTROPHILS # 2.6 10^3/uL (1.5-8.5); PLATELET COUNT, AUTOMATED 239 10^3/uL (150-450); RED BLOOD COUNT 3.39 10^6/uL (4.00-5.40); WHITE BLOOD COUNT 5.3 10^3/uL (4.0-10.0)
[2019-07-24 17:06] LABS: ALBUMIN 3.5 GM/DL (3.2-5.2); BILIRUBIN,TOTAL 0.5 MG/DL (0.2-1.0); CALCIUM LEVEL 8.9 MG/DL (8.8-10.2); CREATININE FOR GFR 1.46 MG/DL (0.55-1.30); FREE T4 1.4 NG/DL (0.76-1.46); GLOMERULAR FILTRATION RATE 36.6 (>32); IMMUNOGLOBULIN A 51.3 MG/DL (70-400); PERCENT SATURATION 29.8 % (13.2-45.0); POTASSIUM SERUM 4.2 MEQ/L (3.5-5.1); THYROID STIMULATING HORMONE 1.4 uIU/ML (0.358-3.740); TOTAL PROTEIN 7.7 GM/DL (6.4-8.2)
== END ==
LOC: M LABDRAWC 15:54
PROVIDERS: ATTEND Internal Medicine Hematology & Oncology
DX: C88.0 Waldenstrom macroglobulinemia (principal); Z88.8 Allergy status to other drugs, medicaments and biological substances; Z79.899 Other long term (current) drug therapy

== ENCOUNTER → 2019-08-19 | Outpatient (REF) | payer MEDICARE, OTHER ==
[2019-08-19 12:00] LABS: HEMATOCRIT 33.3 % (36.0-47.0); HEMOGLOBIN 11.2 g/dl (12.0-15.5); MEAN CORPUSCULAR HGB CONC 33.6 g/dl (32.0-36.5); MEAN CORPUSCULAR VOLUME 95.1 fl (80.0-96.0); PLATELET COUNT, AUTOMATED 260 10^3/uL (150-450); WHITE BLOOD COUNT 5.3 10^3/uL (4.0-10.0)
[2019-08-19 12:22] LABS: ALBUMIN 3.7 GM/DL (3.2-5.2); BILIRUBIN,TOTAL 0.5 MG/DL (0.2-1.0); CALCIUM LEVEL 9.7 MG/DL (8.8-10.2); CHOLESTEROL RISK RATIO 3.911 (<5); CREATININE FOR GFR 1.33 MG/DL (0.55-1.30); GLOMERULAR FILTRATION RATE 40.8 (>32); POTASSIUM SERUM 4.3 MEQ/L (3.5-5.1); THYROID STIMULATING HORMONE 1.32 uIU/ML (0.358-3.740); TOTAL PROTEIN 7.8 GM/DL (6.4-8.2)
== END ==
LOC: M LABDRAWC 11:29
PROVIDERS: ATTEND Internal Medicine
DX: I13.10 Hypertensive heart and chronic kidney disease without heart failure, with stage 1 through stage 4 chronic kidney disease, or unspecified chronic kidney disease (principal); N18.3 Chronic kidney disease, stage 3 (moderate); E78.00 Pure hypercholesterolemia, unspecified; E66.3 Overweight; D63.1 Anemia in chronic kidney disease

== ENCOUNTER → 2019-10-25 | Outpatient (CLI) | payer MEDICARE, OTHER ==
--- NOTE | 2019-10-25 16:00 | REP ---
REASON: Edema. FINDINGS: No acute fracture or destructive osseous lesion. Electronically Signed by Miguel Palacio DO 10/25/2019 05:02 P
--- NOTE | 2019-10-25 16:01 | REP ---
REASON FOR EXAM: Lymphedema. FINDINGS: No acute fracture or destructive osseous lesion. There are degenerative changes involving the wrist. Electronically Signed by Miguel Palacio DO 10/25/2019 05:02 P
--- NOTE | 2019-10-25 16:04 | REP ---
REASON: Atraumatic swelling about the 3rd metacarpal. The bones are demineralized. There is evidence of an old healed fracture involving the mid diaphysis of the 4th metacarpal. There are degenerative changes seen throughout the hand and wrist. There is asymmetric intradigital joint space narrowing, particularly affecting the DIP joints of digits 2 through 5 inclusive, seen with subchondral sclerosis and marginal osteophytosis. More mild to moderate intradigital joint space narrowing is seen involving the proximal interphalangeal joints of those digits and the interphalangeal joint of the 1st digit. There are no marginal erosions. There is no periarticular osteopenia. IMPRESSION: Chronic changes, as described above. Electronically Signed by Miguel Palacio DO 10/25/2019 05:02 P
== END ==
LOC: M WUC 12:52
PROVIDERS: ATTEND Internal Medicine Hematology & Oncology
DX: I89.0 Lymphedema, not elsewhere classified (principal)

== ENCOUNTER 2019-10-29 09:30 | Outpatient (RCR) | payer MEDICARE, OTHER | END 2019-11-08 | LOC: M PT 09:30 | PROVIDERS: ATTEND Internal Medicine Hematology & Oncology | DX: I89.0 Lymphedema, not elsewhere classified (principal) ==

== ENCOUNTER 2019-11-27 14:30 | Outpatient (RCR) | payer MEDICARE, OTHER | END 2019-12-09 | LOC: M PT 14:30 | PROVIDERS: ATTEND Orthopaedic Surgery | DX: I89.0 Lymphedema, not elsewhere classified (principal) ==

== ENCOUNTER → 2019-12-18 | Outpatient (CLI) | payer MEDICARE, OTHER ==
--- NOTE | 2020-01-02 15:39 | DEXA ---
AP SPINE L1 - L4 1.053 -1.1 0.7 LT FEMUR TOTAL 0.792 -1.7 0.4 LT NECK 0.790 -1.8 0.4 RT FEMUR TOTAL 0.774 -1.9 0.2 RT NECK 0.764 -2.0 0.3 TOTAL BODY TOTAL OTHER COMMENTS: There is low bone density of the spine and hips. The density of the spine has increased 5.2% since 08/10/2016. The density of the left hip has decreased 7.7% since 08/10/2016. The density of the right hip has decreased 7.2% since 08/10/2016. FOLLOW-UP: Recommendation for the next bone density exam: 2 years. LUIS ANGEL
--- NOTE | 2020-01-07 11:02 | REP ---
LEFT BREAST MAMMOGRAM WITH 3D TOMOSYNTHESIS: HISTORY: Right breast cancer and mastectomy. No family history of breast cancer. TECHNIQUE: MLO and CC views of the left breast are performed in 3D tomosynthesis and compared to multiple prior exams, the most recent of which is 11/14/18. FINDINGS: There is moderate heterogeneous fibroglandular tissue seen in the left breast. [place] breast is B. There is no change since the prior studies. There is no new mass or architectural distortion. No cluster of parenchymal calcifications are seen. There are coarse benign-type calcifications present. IMPRESSION: ACR 1 negative mammogram left breast in this patient with prior right breast cancer and mastectomy. No new mass or cluster of microcalcifications left breast. Recommend follow up mammogram in one year. This mammogram was interpreted with the aid of an FDA approved computer aided detection system. The patient has not had a clinical breast exam in over one year. Mammogram letter 1. MTDD
== END ==
LOC: M WHC 13:55
PROVIDERS: ATTEND Internal Medicine
DX: Z12.31 Encounter for screening mammogram for malignant neoplasm of breast (principal); M81.0 Age-related osteoporosis without current pathological fracture

== ENCOUNTER → 2020-01-24 | Outpatient (REF) | payer MEDICARE, OTHER ==
[2020-01-24 16:49] LABS: BASO # 0.1 10^3/uL (0.0-0.2); EOS # 0.3 10^3/uL (0.0-0.5); EOS % 4.5 % (0.0-3.0); HEMATOCRIT 32.8 % (36.0-47.0); HEMOGLOBIN 10.4 g/dl (12.0-15.5); LYMPH % 32.5 % (24.0-44.0); MEAN CORPUSCULAR HEMOGLOBIN 30.9 pg (27.0-33.0); MEAN CORPUSCULAR HGB CONC 31.7 g/dl (32.0-36.5); MEAN CORPUSCULAR VOLUME 97.3 fl (80.0-96.0); MONO # 0.6 10^3/uL (0.0-0.8); NEUTROPHILS # 3.2 10^3/uL (1.5-8.5); NEUTROPHILS % 51.7 % (36.0-66.0); PLATELET COUNT, AUTOMATED 254 10^3/uL (150-450); RED BLOOD COUNT 3.37 10^6/uL (4.00-5.40); WHITE BLOOD COUNT 6.2 10^3/uL (4.0-10.0)
[2020-01-24 17:53] LABS: ALBUMIN 3.6 GM/DL (3.2-5.2); ALT/SGPT 23 U/L (12-78); BILIRUBIN,TOTAL 0.5 MG/DL (0.2-1.0); BLOOD UREA NITROGEN 37 MG/DL (7-18); CALCIUM LEVEL 9.2 MG/DL (8.8-10.2); CARBON DIOXIDE LEVEL 25 MEQ/L (21-32); CHLORIDE LEVEL 101 MEQ/L (98-107); CREATININE FOR GFR 1.58 MG/DL (0.55-1.30); GLOMERULAR FILTRATION RATE 33.4 (>32); GLUCOSE, FASTING 90 MG/DL (70-100); IMMUNOGLOBULIN A 55.9 MG/DL (70-400); IMMUNOGLOBULIN G 899 MG/DL (681-1648); POTASSIUM SERUM 4.3 MEQ/L (3.5-5.1); SODIUM LEVEL 135 MEQ/L (136-145); TOTAL PROTEIN 7.7 GM/DL (6.4-8.2)
[2020-01-28 13:00] LABS: ALBUMIN % 53.9 % (55.8-66.1); ALPHA-1-GLOBULIN % 4.1 % (2.9-4.9)
[2020-01-28 13:01] LABS: ALBUMIN 4.15 GM/DL (3.29-5.55); ALPHA-1-GLOBULINS 0.32 GM/DL (0.17-0.41); ALPHA-2-GLOBULINS 0.85 GM/DL (0.42-0.99); BETA-1-GLOBULINS 0.57 GM/DL (0.28-0.60); BETA-1-GLOBULINS % 7.4 % (4.7-7.2); BETA-2-GLOBULINS 0.78 GM/DL (0.19-0.55); BETA-2-GLOBULINS % 10.1 % (3.2-6.5); GAMMA GLOBULIN % 13.5 % (11.1-18.8); GAMMA GLOBULINS 1.04 GM/DL (0.65-1.58)
[2020-01-29 07:08] LABS: KAPPA/LAMBDA RATIO SERUM 0.78 (0.26-1.65)
== END ==
LOC: M LABDRAWC 16:08
PROVIDERS: ATTEND Internal Medicine Medical Oncology
DX: C88.0 Waldenstrom macroglobulinemia (principal)

== ENCOUNTER → 2020-02-19 | Outpatient (REF) | payer MEDICARE, OTHER ==
[2020-02-19 11:47] LABS: BASO % 0.6 % (0.0-1.0); EOS # 0.2 10^3/uL (0.0-0.5); EOS % 3.7 % (0.0-3.0); HEMATOCRIT 32.7 % (36.0-47.0); HEMOGLOBIN 10.3 g/dl (12.0-15.5); LYMPH # 1.8 10^3/uL (1.5-5.0); LYMPH % 37.9 % (24.0-44.0); MEAN CORPUSCULAR HEMOGLOBIN 30.6 pg (27.0-33.0); MEAN CORPUSCULAR HGB CONC 31.5 g/dl (32.0-36.5); MONO # 0.4 10^3/uL (0.0-0.8); MONO % 8.9 % (0.0-5.0); NEUTROPHILS # 2.2 10^3/uL (1.5-8.5); NEUTROPHILS % 48.5 % (36.0-66.0); PLATELET COUNT, AUTOMATED 259 10^3/uL (150-450); RED BLOOD COUNT 3.37 10^6/uL (4.00-5.40); WHITE BLOOD COUNT 4.6 10^3/uL (4.0-10.0)
[2020-02-19 12:21] LABS: ALBUMIN 3.8 GM/DL (3.2-5.2); BILIRUBIN,TOTAL 0.5 MG/DL (0.2-1.0); CALCIUM LEVEL 9.9 MG/DL (8.8-10.2); CREATININE FOR GFR 1.61 MG/DL (0.55-1.30); GLOMERULAR FILTRATION RATE 32.7 (>32); POTASSIUM SERUM 4.6 MEQ/L (3.5-5.1); TOTAL PROTEIN 7.7 GM/DL (6.4-8.2)
[2020-02-19 12:29] LABS: TOTAL 25(OH) VITAMIN D 50.3 NG/ML (30.0-100.0)
== END ==
LOC: M LABDRAWC 11:19
PROVIDERS: ATTEND Internal Medicine
DX: I13.10 Hypertensive heart and chronic kidney disease without heart failure, with stage 1 through stage 4 chronic kidney disease, or unspecified chronic kidney disease (principal); D63.1 Anemia in chronic kidney disease; M85.9 Disorder of bone density and structure, unspecified; N18.9 Chronic kidney disease, unspecified

== ENCOUNTER → 2020-05-28 | Outpatient (CLI) | payer MEDICARE, OTHER ==
[~2020-05-28] MED LIST changes: +ACET325T43 PO; +PROHANCE 279.3MG/ML 5ML VIAL As Ordered ONE
--- NOTE | 2020-05-28 17:33 | REP ---
INDICATION: BREAST PAIN. COMPARISON: Comparison mammography December 18, 2019. TECHNIQUE: Three Cherrie MRI imaging was performed with a dedicated breast coil. Axial, coronal, and sagittal T1 and T2 weighted scans were obtained with and without fat saturation in the usual fashion. The study includes dynamically acquired post gadolinium-enhanced imaging with image subtraction. Maximum intensity projection and multi planar reformation imaging is included as well. This study is interpreted with the aid of Bion[employer], an FDA approved computer aided detection (CAD) software program, on a dedicated breast MRI workstation. The gadolinium enhancement dose is 7 mL of intravenous ProHance. FINDINGS: The patient is status post right mastectomy. There is no evidence of axillary lymphadenopathy or internal mammary adenopathy on either side. On high-resolution T1 and T2 weighted scans, there is no evidence of breast mass or other suspicious morphologic abnormality in the left breast. No chest wall lesion is seen on either side. There is moderate fibroglandular tissue. Minimal pattern of background parenchymal enhancement is seen. Dynamically acquired sequential postcontrast images show no suspicious focus of enhancement and washout in either breast to suggest malignancy. Subtraction images show no additional finding.. IMPRESSION: BI-RADS category 2 benign left breastMRI findings. <Electronically signed by Grayson Brown > 05/28/20 [id number]
== END ==
LOC: M RAD 10:33
PROVIDERS: ATTEND Internal Medicine Medical Oncology
DX: N64.4 Mastodynia (principal); Z90.11 Acquired absence of right breast and nipple
CPT/HCPCS: A9576; C8908

== ENCOUNTER → 2020-07-10 | Outpatient (CLI) | payer MEDICARE, OTHER ==
[~2020-07-10] MED LIST changes: -PROHANCE 279.3MG/ML 5ML VIAL As Ordered ONE
--- NOTE | 2020-07-10 15:57 | REP ---
INDICATION: N63.20 LT BREAST MASS. Pain left breast 1 and 8 o'clock. COMPARISON: MRI 05/28/2020. TECHNIQUE: Real-time sonographic evaluation of left breast performed. FINDINGS: No discrete abnormality is seen at the 1 and 8 o'clock positions of the left breast. There is no discrete cystic or solid mass. IMPRESSION: BIRADS/ACR category 1, negative left breast ultrasound as discussed above. No discrete cystic or solid mass at the sites of clinical concern. RECOMMENDATION: Clinical follow-up. <Electronically signed by Mina Camacho > 07/10/20 [id number]
== END ==
LOC: M WHC 13:54
PROVIDERS: ATTEND Surgery
DX: N63.20 Unspecified lump in the left breast, unspecified quadrant (principal); R92.2 Inconclusive mammogram

== ENCOUNTER 2020-08-06 11:49 | Outpatient (RCR) | payer MEDICARE, OTHER | END 2020-08-07 | LOC: M PT 11:49 | PROVIDERS: ATTEND Surgery | DX: I89.0 Lymphedema, not elsewhere classified (principal) ==

== ENCOUNTER → 2020-08-21 | Outpatient (REF) | payer MEDICARE, OTHER ==
[2020-08-21 11:57] LABS: BASO % 0.7 % (0.0-1.0); EOS # 0.2 10^3/uL (0.0-0.5); EOS % 3.2 % (0.0-3.0); HEMATOCRIT 33.1 % (36.0-47.0); HEMOGLOBIN 10.4 g/dl (12.0-15.5); LYMPH # 1.9 10^3/uL (1.5-5.0); LYMPH % 35.6 % (24.0-44.0); MEAN CORPUSCULAR HEMOGLOBIN 30.9 pg (27.0-33.0); MEAN CORPUSCULAR HGB CONC 31.4 g/dl (32.0-36.5); MEAN CORPUSCULAR VOLUME 98.2 fl (80.0-96.0); MONO # 0.4 10^3/uL (0.0-0.8); NEUTROPHILS # 2.8 10^3/uL (1.5-8.5); NEUTROPHILS % 52.3 % (36.0-66.0); PLATELET COUNT, AUTOMATED 277 10^3/uL (150-450); RED BLOOD COUNT 3.37 10^6/uL (4.00-5.40); WHITE BLOOD COUNT 5.4 10^3/uL (4.0-10.0)
[2020-08-21 12:55] LABS: ALBUMIN 3.6 GM/DL (3.2-5.2); BILIRUBIN,TOTAL 0.6 MG/DL (0.2-1.0); CALCIUM LEVEL 9.7 MG/DL (8.8-10.2); CHOLESTEROL RISK RATIO 3.426 (<5); CREATININE FOR GFR 1.24 MG/DL (0.55-1.30); GLOMERULAR FILTRATION RATE 44.1 (>32); POTASSIUM SERUM 4.5 MEQ/L (3.5-5.1); THYROID STIMULATING HORMONE 1.01 uIU/ML (0.358-3.740); TOTAL PROTEIN 7.5 GM/DL (6.4-8.2)
== END ==
LOC: M LABDRAWC 11:19
PROVIDERS: ATTEND Internal Medicine
DX: N18.32 Chronic kidney disease, stage 3b (principal); E78.00 Pure hypercholesterolemia, unspecified; I13.10 Hypertensive heart and chronic kidney disease without heart failure, with stage 1 through stage 4 chronic kidney disease, or unspecified chronic kidney disease

== ENCOUNTER 2021-02-05 09:54 | Outpatient (RCR) | payer MEDICARE, OTHER ==
[~2021-02-05 09:54] MED LIST changes: +OMEP40CA4 PO; -OMEP40CA97 PO
== END 2021-02-07 | disposition still patient (30) ==
LOC: M PT 09:54
PROVIDERS: ATTEND Surgery
DX: I89.0 Lymphedema, not elsewhere classified (principal)

== ENCOUNTER → 2021-02-24 | Outpatient (REF) | payer MEDICARE, OTHER ==
[2021-02-24 11:28] LABS: BASO % 0.5 % (0.0-1.0); EOS # 0.2 10^3/uL (0.0-0.5); EOS % 3.3 % (0.0-3.0); HEMATOCRIT 33.3 % (36.0-47.0); HEMOGLOBIN 10.8 g/dl (12.0-15.5); LYMPH # 2.3 10^3/uL (1.5-5.0); LYMPH % 37.9 % (24.0-44.0); MEAN CORPUSCULAR HEMOGLOBIN 31.3 pg (27.0-33.0); MEAN CORPUSCULAR HGB CONC 32.4 g/dl (32.0-36.5); MEAN CORPUSCULAR VOLUME 96.5 fl (80.0-96.0); MONO # 0.5 10^3/uL (0.0-0.8); MONO % 8.4 % (2.0-8.0); NEUTROPHILS % 49.6 % (36.0-66.0); PLATELET COUNT, AUTOMATED 286 10^3/uL (150-450); RED BLOOD COUNT 3.45 10^6/uL (4.00-5.40)
[2021-02-24 11:52] LABS: ALBUMIN 3.5 GM/DL (3.2-5.2); BILIRUBIN,TOTAL 0.6 MG/DL (0.2-1.0); CALCIUM LEVEL 9.7 MG/DL (8.8-10.2); CHOLESTEROL RISK RATIO 3.733 (<5); CREATININE FOR GFR 1.36 MG/DL (0.55-1.30); GLOMERULAR FILTRATION RATE 39.6 (>32); POTASSIUM SERUM 4.3 MEQ/L (3.5-5.1); TOTAL PROTEIN 7.7 GM/DL (6.4-8.2)
== END ==
LOC: M LABDRAWC 11:10
PROVIDERS: ATTEND Internal Medicine
DX: E78.00 Pure hypercholesterolemia, unspecified (principal)

== ENCOUNTER → 2021-05-07 | Outpatient (REF) | payer MEDICARE, OTHER | LOC: M LABDRAWC 15:39 | PROVIDERS: ATTEND Internal Medicine Medical Oncology | DX: C88.0 Waldenstrom macroglobulinemia (principal) ==

== ENCOUNTER → 2021-06-28 | Outpatient (CLI) | payer MEDICARE, OTHER | LOC: M WHC 09:53 | PROVIDERS: ATTEND Internal Medicine Medical Oncology | DX: Z12.31 Encounter for screening mammogram for malignant neoplasm of breast (principal); Z85.3 Personal history of malignant neoplasm of breast ==

== ENCOUNTER 2021-08-06 09:51 | Outpatient (RCR) | payer MEDICARE, OTHER | END 2021-08-07 | LOC: M PT 09:51 | PROVIDERS: ATTEND Surgery | DX: I89.0 Lymphedema, not elsewhere classified (principal) ==

== ENCOUNTER → 2021-09-15 | Outpatient (REF) | payer MEDICARE, OTHER ==
[2021-09-15 11:43] LABS: HEMATOCRIT 33.6 % (36.0-47.0); MEAN CORPUSCULAR HEMOGLOBIN 31.2 pg (27.0-33.0); MEAN CORPUSCULAR HGB CONC 32.7 g/dl (32.0-36.5); MEAN CORPUSCULAR VOLUME 95.2 fl (80.0-96.0); PLATELET COUNT, AUTOMATED 230 10^3/uL (150-450); RED BLOOD COUNT 3.53 10^6/uL (4.00-5.40); WHITE BLOOD COUNT 5.2 10^3/uL (4.0-10.0)
[2021-09-15 12:23] LABS: ALBUMIN 3.4 GM/DL (3.2-5.2); BILIRUBIN,TOTAL 0.5 MG/DL (0.2-1.0); CALCIUM LEVEL 9.1 MG/DL (8.8-10.2); CHOLESTEROL RISK RATIO 3.424 (<5); CREATININE FOR GFR 1.4 MG/DL (0.55-1.30); FREE T4 1.2 NG/DL (0.76-1.46); GLOMERULAR FILTRATION RATE 38.2 (>32); POTASSIUM SERUM 4.7 MEQ/L (3.5-5.1); THYROID STIMULATING HORMONE 1.25 uIU/ML (0.358-3.740)
== END ==
LOC: M LABDRAWC 11:15
PROVIDERS: ATTEND Internal Medicine
DX: N18.30 Chronic kidney disease, stage 3 unspecified (principal); D63.1 Anemia in chronic kidney disease; Z68.27 Body mass index [BMI] 27.0-27.9, adult; Z79.899 Other long term (current) drug therapy

== ENCOUNTER → 2021-12-10 | Outpatient (REF) | payer MEDICARE, OTHER ==
[~2021-12-10] MED LIST changes: +INDA1.253 PO; -INDA125TA PO
[2021-12-10 18:27] LABS: BASO % 0.5 % (0.0-1.0); EOS # 0.2 10^3/uL (0.0-0.5); EOS % 3.5 % (0.0-3.0); HEMATOCRIT 31.9 % (36.0-47.0); HEMOGLOBIN 10.4 g/dl (12.0-15.5); LYMPH # 1.8 10^3/uL (1.5-5.0); LYMPH % 31.8 % (24.0-44.0); MEAN CORPUSCULAR HGB CONC 32.6 g/dl (32.0-36.5); MEAN CORPUSCULAR VOLUME 98.2 fl (80.0-96.0); MONO # 0.5 10^3/uL (0.0-0.8); MONO % 9.1 % (2.0-8.0); NEUTROPHILS # 3.1 10^3/uL (1.5-8.5); NEUTROPHILS % 54.7 % (36.0-66.0); PLATELET COUNT, AUTOMATED 241 10^3/uL (150-450); RED BLOOD COUNT 3.25 10^6/uL (4.00-5.40); WHITE BLOOD COUNT 5.7 10^3/uL (4.0-10.0)
[2021-12-10 19:42] LABS: ALBUMIN 3.5 GM/DL (3.2-5.2); ALT/SGPT 28 U/L (12-78); BILIRUBIN,TOTAL 0.4 MG/DL (0.2-1.0); BLOOD UREA NITROGEN 31 MG/DL (7-18); CALCIUM LEVEL 8.8 MG/DL (8.8-10.2); CARBON DIOXIDE LEVEL 22 MEQ/L (21-32); CHLORIDE LEVEL 101 MEQ/L (98-107); CREATININE FOR GFR 1.43 MG/DL (0.55-1.30); FERRITIN 100 NG/ML (8-252); GLOMERULAR FILTRATION RATE 37.3 (>32); GLUCOSE, FASTING 112 MG/DL (70-100); IMMUNOGLOBULIN G 914 MG/DL (681-1648); IRON (FE) 77 UG/DL (50-170); PERCENT SATURATION 25.8 % (13.2-45.0); POTASSIUM SERUM 4.5 MEQ/L (3.5-5.1); SODIUM LEVEL 131 MEQ/L (136-145); TOTAL IRON BINDING CAPACITY 299 UG/DL (250-450); TOTAL PROTEIN 7.4 GM/DL (6.4-8.2)
[2021-12-15 12:51] LABS: ALBUMIN % 56.7 % (55.8-66.1); ALPHA-1-GLOBULIN % 3.5 % (2.9-4.9); ALPHA-2-GLOBULINS % 9.8 % (7.1-11.8); BETA-1-GLOBULINS % 7.3 % (4.7-7.2); BETA-2-GLOBULINS % 9.9 % (3.2-6.5); GAMMA GLOBULIN % 12.8 % (11.1-18.8)
[2021-12-15 12:52] LABS: ALPHA-1-GLOBULINS 0.26 GM/DL (0.17-0.41); ALPHA-2-GLOBULINS 0.73 GM/DL (0.42-0.99); BETA-1-GLOBULINS 0.54 GM/DL (0.28-0.60); BETA-2-GLOBULINS 0.73 GM/DL (0.19-0.55); GAMMA GLOBULINS 0.95 GM/DL (0.65-1.58)
[2021-12-16 16:08] LABS: FREE LAMBDA LIGHT CHAINS SERUM 59.7 mg/L (5.7-26.3); KAPPA/LAMBDA RATIO SERUM 0.97 (0.26-1.65); SERUM VISCOSITY 1.9 rel.saline (1.4-2.1)
== END ==
LOC: M LABDRAWC 16:33
PROVIDERS: ATTEND Internal Medicine Medical Oncology
DX: C88.0 Waldenstrom macroglobulinemia (principal); Z79.899 Other long term (current) drug therapy

== ENCOUNTER → 2022-03-23 | Outpatient (REF) | payer MEDICARE, OTHER ==
[2022-03-23 11:41] LABS: BASO % 0.6 % (0.0-1.0); EOS # 0.1 10^3/uL (0.0-0.5); EOS % 2.8 % (0.0-3.0); HEMATOCRIT 33.4 % (36.0-47.0); HEMOGLOBIN 10.5 g/dl (12.0-15.5); LYMPH # 2.4 10^3/uL (1.5-5.0); LYMPH % 47.3 % (24.0-44.0); MEAN CORPUSCULAR HEMOGLOBIN 30.7 pg (27.0-33.0); MEAN CORPUSCULAR HGB CONC 31.4 g/dl (32.0-36.5); MEAN CORPUSCULAR VOLUME 97.7 fl (80.0-96.0); MONO # 0.5 10^3/uL (0.0-0.8); MONO % 10.5 % (2.0-8.0); NEUTROPHILS % 38.4 % (36.0-66.0); PLATELET COUNT, AUTOMATED 254 10^3/uL (150-450); RED BLOOD COUNT 3.42 10^6/uL (4.00-5.40); WHITE BLOOD COUNT 5.1 10^3/uL (4.0-10.0)
[2022-03-23 12:09] LABS: ALBUMIN 3.4 G/DL (3.2-5.2); BILIRUBIN,TOTAL 0.5 MG/DL (0.3-1.2); CALCIUM LEVEL 9.4 MG/DL (8.3-10.6); CHOLESTEROL RISK RATIO 3.82 (<5); CREATININE FOR GFR 1.17 MG/DL (0.55-1.30); HDL CHOLESTEROL 54.7 MG/DL (>40); LDL CHOLESTEROL 130.5 MG/DL (<100); POTASSIUM SERUM 4.4 MMOL/L (3.5-5.1); TOTAL PROTEIN 7.5 G/DL (5.7-8.2)
[2022-03-23 12:11] LABS: THYROID STIMULATING HORMONE 0.819 uIU/ML (0.55-4.78)
== END ==
LOC: M LABDRAWC 11:12
PROVIDERS: ATTEND Internal Medicine
DX: I13.10 Hypertensive heart and chronic kidney disease without heart failure, with stage 1 through stage 4 chronic kidney disease, or unspecified chronic kidney disease (principal); E78.00 Pure hypercholesterolemia, unspecified; D64.9 Anemia, unspecified; E03.9 Hypothyroidism, unspecified

== ENCOUNTER → 2022-05-10 | Outpatient (REF) | payer MEDICARE, OTHER | LOC: M LAB REF 16:11 | PROVIDERS: ATTEND Internal Medicine | DX: R74.8 Abnormal levels of other serum enzymes (principal) ==

== ENCOUNTER → 2022-05-27 | Outpatient (REF) | payer MEDICARE, OTHER | LOC: M LAB REF 15:57 | PROVIDERS: ATTEND Internal Medicine | DX: C88.0 Waldenstrom macroglobulinemia (principal) ==

== ENCOUNTER → 2022-06-06 | Outpatient (REF) | payer MEDICARE, OTHER ==
[2022-06-06 17:44] LABS: BASO % 0.7 % (0.0-1.0); EOS # 0.1 10^3/uL (0.0-0.5); EOS % 2.1 % (0.0-3.0); HEMATOCRIT 32.3 % (36.0-47.0); HEMOGLOBIN 10.3 g/dl (12.0-15.5); LYMPH # 1.8 10^3/uL (1.5-5.0); MEAN CORPUSCULAR HEMOGLOBIN 31.6 pg (27.0-33.0); MEAN CORPUSCULAR HGB CONC 31.9 g/dl (32.0-36.5); MEAN CORPUSCULAR VOLUME 99.1 fl (80.0-96.0); MONO # 0.4 10^3/uL (0.0-0.8); MONO % 6.9 % (2.0-8.0); NEUTROPHILS # 3.7 10^3/uL (1.5-8.5); NEUTROPHILS % 60.1 % (36.0-66.0); PLATELET COUNT, AUTOMATED 290 10^3/uL (150-450); RED BLOOD COUNT 3.26 10^6/uL (4.00-5.40); WHITE BLOOD COUNT 6.1 10^3/uL (4.0-10.0)
[2022-06-06 18:15] LABS: IMMUNOGLOBULIN A 92.6 MG/DL (40-350)
[2022-06-06 18:16] LABS: ALBUMIN 3.5 G/DL (3.2-5.2); BILIRUBIN,TOTAL 0.4 MG/DL (0.3-1.2); CREATININE FOR GFR 1.17 MG/DL (0.55-1.30); GLOMERULAR FILTRATION RATE 46.9 (>32); POTASSIUM SERUM 4.1 MMOL/L (3.5-5.1); TOTAL PROTEIN 7.2 G/DL (5.7-8.2)
== END ==
LOC: M LABDRAWC 17:08
PROVIDERS: ATTEND Internal Medicine Medical Oncology
DX: C88.0 Waldenstrom macroglobulinemia (principal)

== ENCOUNTER → 2022-06-17 | Outpatient (CLI) | payer MEDICARE, OTHER ==
[~2022-06-17] MED LIST changes: +LOSA25TA13; +PROHANCE 279.3MG/ML 15ML VIAL As Ordered ONE
== END ==
LOC: M RAD 12:23
PROVIDERS: ATTEND Internal Medicine
DX: G50.8 Other disorders of trigeminal nerve (principal); R55 Syncope and collapse; R94.02 Abnormal brain scan
CPT/HCPCS: 70544; 70553; A9576

== ENCOUNTER → 2022-06-30 | Outpatient (CLI) | payer MEDICARE, OTHER ==
[~2022-06-30] MED LIST changes: -PROHANCE 279.3MG/ML 15ML VIAL As Ordered ONE
== END ==
LOC: M WHC 09:48
PROVIDERS: ATTEND Internal Medicine
DX: Z12.31 Encounter for screening mammogram for malignant neoplasm of breast (principal); Z85.3 Personal history of malignant neoplasm of breast; Z90.11 Acquired absence of right breast and nipple

== ENCOUNTER → 2022-08-10 | Outpatient (REF) | payer MEDICARE, OTHER ==
[2022-08-10 18:32] LABS: CALCIUM LEVEL 9.7 MG/DL (8.3-10.6); CREATININE FOR GFR 1.26 MG/DL (0.55-1.30); GLOMERULAR FILTRATION RATE 43.1 (>32); POTASSIUM SERUM 5.2 MMOL/L (3.5-5.1)
== END ==
LOC: M LABDRAWC 17:06
PROVIDERS: ATTEND Internal Medicine
DX: I10 Essential (primary) hypertension (principal)

== ENCOUNTER 2022-08-19 14:03 | Outpatient (RCR) | payer MEDICARE, OTHER | END 2022-09-07 | LOC: M PT 14:03 | PROVIDERS: ATTEND Surgery | DX: I89.0 Lymphedema, not elsewhere classified (principal) ==

== ENCOUNTER → 2022-08-31 | Outpatient (REF) | payer MEDICARE, OTHER | LOC: M LABDRAWC 11:15 | PROVIDERS: ATTEND Internal Medicine | DX: I95.1 Orthostatic hypotension (principal) ==

== ENCOUNTER → 2022-08-31 | Outpatient (REF) | payer MEDICARE, OTHER ==
[2022-08-31 12:25] LABS: BASO % 0.4 % (0.0-1.0); EOS # 0.2 10^3/uL (0.0-0.5); EOS % 2.9 % (0.0-3.0); HEMATOCRIT 31.1 % (36.0-47.0); HEMOGLOBIN 10.3 g/dl (12.0-15.5); LYMPH # 2.1 10^3/uL (1.5-5.0); LYMPH % 41.1 % (24.0-44.0); MEAN CORPUSCULAR HEMOGLOBIN 31.5 pg (27.0-33.0); MEAN CORPUSCULAR HGB CONC 33.1 g/dl (32.0-36.5); MEAN CORPUSCULAR VOLUME 95.1 fl (80.0-96.0); MONO # 0.5 10^3/uL (0.0-0.8); NEUTROPHILS # 2.4 10^3/uL (1.5-8.5); NEUTROPHILS % 46.4 % (36.0-66.0); PLATELET COUNT, AUTOMATED 297 10^3/uL (150-450); RED BLOOD COUNT 3.27 10^6/uL (4.00-5.40); WHITE BLOOD COUNT 5.2 10^3/uL (4.0-10.0)
[2022-08-31 12:28] LABS: ALBUMIN 3.6 G/DL (3.2-5.2); BILIRUBIN,TOTAL 0.5 MG/DL (0.3-1.2); CALCIUM LEVEL 9.3 MG/DL (8.3-10.6); CREATININE FOR GFR 1.34 MG/DL (0.55-1.30); GLOMERULAR FILTRATION RATE 40.1 (>32); IMMUNOGLOBULIN A 58.3 MG/DL (40-350); POTASSIUM SERUM 4.9 MMOL/L (3.5-5.1); TOTAL PROTEIN 7.1 G/DL (5.7-8.2)
[2022-08-31 13:02] LABS: IMMUNOGLOBULIN M 1207.3 MG/DL (50-300)
== END ==
LOC: M LABDRAWC 11:17
PROVIDERS: ATTEND Internal Medicine Medical Oncology
DX: C88.0 Waldenstrom macroglobulinemia (principal); I95.1 Orthostatic hypotension

== ENCOUNTER 2022-11-19 11:01 | Emergency (ER) | payer MEDICARE, OTHER ==
[~2022-11-19] VITALS: Ht 162.6 cm; Wt 74.1 kg
[2022-11-19 12:11] LABS: BASO % 0.1 % (0.0-1.0); EOS # 0.1 10^3/uL (0.0-0.5); EOS % 0.6 % (0.0-3.0); HEMATOCRIT 26.3 % (36.0-47.0); HEMOGLOBIN 8.5 g/dl (12.0-15.5); LYMPH # 1.5 10^3/uL (1.5-5.0); LYMPH % 15.1 % (24.0-44.0); MEAN CORPUSCULAR HEMOGLOBIN 31.1 pg (27.0-33.0); MEAN CORPUSCULAR HGB CONC 32.3 g/dl (32.0-36.5); MEAN CORPUSCULAR VOLUME 96.3 fl (80.0-96.0); MONO # 0.8 10^3/uL (0.0-0.8); NEUTROPHILS # 7.2 10^3/uL (1.5-8.5); NEUTROPHILS % 75.1 % (36.0-66.0); PLATELET COUNT, AUTOMATED 426 10^3/uL (150-450); RED BLOOD COUNT 2.73 10^6/uL (4.00-5.40); WHITE BLOOD COUNT 9.6 10^3/uL (4.0-10.0)
[2022-11-19 12:40] LABS: ALBUMIN 2.2 G/DL (3.2-5.2); BILIRUBIN,TOTAL 0.7 MG/DL (0.3-1.2); CALCIUM LEVEL 9.3 MG/DL (8.3-10.6); CREATININE FOR GFR 1.25 MG/DL (0.55-1.30); GLOMERULAR FILTRATION RATE 43.5 (>32); POTASSIUM SERUM 5.8 MMOL/L (3.5-5.1); TOTAL PROTEIN 6.8 G/DL (5.7-8.2)
[2022-11-19] MEDS ORDERED: ONDANSETRON 4MG 2ML VIAL IV ONE (13:55)
[2022-11-19] MEDS: MORPHINE 2 MG/ML 1ML VIAL IV PRN ×2 (13:59→17:31)
[2022-11-19] MEDS: NS 1,000 ML IV SCH ×2 (18:54→19:13)
[2022-11-19 19:19] VITALS: BP 153/67; TEMP 99; O2SAT 88
== END 2022-11-19 19:24 | disposition short-term general hospital (02) ==
LOC: EDBD 11:01 → M ED 11:01
DX: M54.9 Dorsalgia, unspecified (principal); R32 Unspecified urinary incontinence; I12.9 Hypertensive chronic kidney disease with stage 1 through stage 4 chronic kidney disease, or unspecified chronic kidney disease; E78.00 Pure hypercholesterolemia, unspecified; N18.9 Chronic kidney disease, unspecified; C91.11 Chronic lymphocytic leukemia of B-cell type in remission; Z85.3 Personal history of malignant neoplasm of breast; Z88.8 Allergy status to other drugs, medicaments and biological substances; Z79.82 Long term (current) use of aspirin; Z79.899 Other long term (current) drug therapy

== ENCOUNTER → 2022-11-25 | Outpatient (REF) | payer MEDICARE, OTHER ==
[2022-11-25 11:49] LABS: BASO % 0.2 % (0.0-1.0); EOS # 0.1 10^3/uL (0.0-0.5); EOS % 0.8 % (0.0-3.0); HEMATOCRIT 27.9 % (36.0-47.0); HEMOGLOBIN 8.8 g/dl (12.0-15.5); LYMPH # 2.2 10^3/uL (1.5-5.0); LYMPH % 24.6 % (24.0-44.0); MEAN CORPUSCULAR HEMOGLOBIN 30.9 pg (27.0-33.0); MEAN CORPUSCULAR HGB CONC 31.5 g/dl (32.0-36.5); MEAN CORPUSCULAR VOLUME 97.9 fl (80.0-96.0); MONO # 0.9 10^3/uL (0.0-0.8); MONO % 9.8 % (2.0-8.0); NEUTROPHILS # 5.5 10^3/uL (1.5-8.5); NEUTROPHILS % 62.7 % (36.0-66.0); PLATELET COUNT, AUTOMATED 360 10^3/uL (150-450); RED BLOOD COUNT 2.85 10^6/uL (4.00-5.40); WHITE BLOOD COUNT 8.8 10^3/uL (4.0-10.0)
[2022-11-25 12:20] LABS: CALCIUM LEVEL 9.6 MG/DL (8.3-10.6); CREATININE FOR GFR 1.66 MG/DL (0.55-1.30); GLOMERULAR FILTRATION RATE 31.3 (>32); POTASSIUM SERUM 4.9 MMOL/L (3.5-5.1)
== END ==
LOC: M LABDRAWC 11:14
PROVIDERS: ATTEND Internal Medicine
DX: E78.00 Pure hypercholesterolemia, unspecified (principal); I95.1 Orthostatic hypotension

== ENCOUNTER → 2022-12-08 | Outpatient (REF) | payer MEDICARE, OTHER ==
[~2022-12-08] MED LIST changes: +ACET-683 PO; +FURO40TA2 PO; +GABA-1171 PO; +GERI8.6T PO; +LIDO1PAD TOP; +METH-1164 PO; +OXYC5CAP56 PO; +PRES10CA2 PO; +SODI650T PO
[2022-12-08 16:50] LABS: FERRITIN 480.1 NG/ML (7.3-270.7)
== END ==
LOC: M LAB REF 16:09
PROVIDERS: ATTEND Internal Medicine
DX: N18.9 Chronic kidney disease, unspecified (principal); D63.1 Anemia in chronic kidney disease; E87.1 Hypo-osmolality and hyponatremia

== ENCOUNTER 2022-12-11 15:44 | Inpatient (IN) | payer MEDICARE, OTHER ==
[~2022-12-11] VITALS: Ht 162.6 cm; Wt 72.1 kg
[~2022-12-11 15:44] MED LIST changes: -ACET-683 PO; -CELE1CAP7 PO; +CELE1CAP8 PO; -FURO40TA2 PO; -GABA-1171 PO; -GERI8.6T PO; -LIDO1PAD TOP; -METH-1164 PO; -OXYC5CAP56 PO; -PRES10CA2 PO; -SODI650T PO
[2022-12-11] MEDS ORDERED: ACETAMINOPHEN 325 MG TAB PO ONE (15:55)
[2022-12-11] MEDS ORDERED: NS 2,220 ML in IV 1 EA IV ONE (16:00)
[2022-12-11] MEDS ORDERED: PIPERACILLIN/TAZOBACTAM SOD 4.5 GM in D5W MINI-BAG PLUS 50 ML IV ONE (16:00)
[2022-12-11] MEDS ORDERED: ACETAMINOPHEN 650MG SUPP As Ordered ONE (16:31)
[2022-12-11 16:37] LABS: ABG BASE EXCESS -0.4 (-2.0-2.0); ABG HCO3 21.7 MMOL/L (22.0-26.0); ABG O2 SATURATION 94.5 % (95.0-99.0); ABG PARTIAL PRESSURE CO2 26.6 mmHg (35.0-45.0); ABG PARTIAL PRESSURE O2 64.8 mmHg (75.0-100.0); ABG STANDARD HCO3 24.1 MMOL/L. (22.0-26.0); ABG TOTAL CO2 22.5 MMOL/L (23.0-31.0)
[2022-12-11] MEDS ORDERED: ACETAMINOPHEN 650MG SUPP PR ONE (16:40)
[2022-12-11 16:44] LABS: BASO % 0.1 % (0.0-1.0); HEMATOCRIT 22.9 % (36.0-47.0); HEMOGLOBIN 7.4 g/dl (12.0-15.5); LYMPH # 1.3 10^3/uL (1.5-5.0); LYMPH % 7.4 % (24.0-44.0); MEAN CORPUSCULAR HEMOGLOBIN 30.7 pg (27.0-33.0); MEAN CORPUSCULAR HGB CONC 32.3 g/dl (32.0-36.5); MONO # 0.8 10^3/uL (0.0-0.8); MONO % 4.5 % (2.0-8.0); NEUTROPHILS # 14.8 10^3/uL (1.5-8.5); NEUTROPHILS % 86.9 % (36.0-66.0); PLATELET COUNT, AUTOMATED 346 10^3/uL (150-450); RED BLOOD COUNT 2.41 10^6/uL (4.00-5.40)
[2022-12-11 16:57] LABS: INR 1.2; PARTIAL THROMBOPLASTIN TIME 28.1 SECONDS (24.8-34.2); PROTHROMBIN TIME 14.9 SECONDS (12.5-14.5)
[2022-12-11 16:59] LABS: C REACTIVE PROTEIN QUANTITATIV 20.6 MG/DL (<1.0)
[2022-12-11 17:01] LABS: ALBUMIN 2.4 G/DL (3.2-5.2); BILIRUBIN,DIRECT 0.8 MG/DL (<0.4); BILIRUBIN,TOTAL 1.4 MG/DL (0.3-1.2); CALCIUM LEVEL 8.5 MG/DL (8.3-10.6); CK-MB VALUE MASS 1.7 NG/ML (<3.6); CREATININE FOR GFR 1.59 MG/DL (0.55-1.30); GLOMERULAR FILTRATION RATE 32.9 (>32); POTASSIUM SERUM 4.5 MMOL/L (3.5-5.1); TOTAL PROTEIN 6.7 G/DL (5.7-8.2)
[2022-12-11] MEDS ORDERED: ISOVUE-370 76% 100ML VIAL As Ordered ONE (17:02)
[2022-12-11 17:07] LABS: APPEARANCE, URINE HAZY (CLEAR); BACTERIA, URINE AUTO 1+ (NEGATIVE); BILIRUBIN, URINE AUTO NEGATIVE (NEGATIVE); BLOOD, URINE BLOOD 1+ (NEGATIVE); COLOR, URINE YELLOW (YELLOW); GLUCOSE, URINE (UA) AUTO NEGATIVE (NEGATIVE); KETONE, URINE AUTO TRACE mg/dL (NEGATIVE); LEUKOCYTE ESTERASE, URINE AUTO 3+ (NEGATIVE); NITRITE, URINE AUTO NEGATIVE (NEGATIVE); PROTEIN, URINE AUTO 2+ mg/dL (NEGATIVE); RBC, URINE AUTO 1 /HPF (0-3); SPECIFIC GRAVITY URINE AUTO 1.012 (1.002-1.035); SQUAMOUS EPITHELIAL CELL UR AU 0 /HPF (0-6); WBC, URINE AUTO TNTC /HPF (0-3)
[2022-12-11 17:13] LABS: PROCALCITONIN 7.05 ng/ml
[2022-12-11 17:15] LABS: MB/CK RELATIVE INDEX 2.04 (< OR =4)
[2022-12-11 19:07] LABS: CK-MB VALUE MASS 3.6 NG/ML (<3.6)
[2022-12-11 19:08] LABS: MB/CK RELATIVE INDEX 4.28 (< OR =4)
[2022-12-11] MEDS ORDERED: HYDROMORPHONE HCL 0.5 MG/ 0.5 ML SYRINGE IV PRN (21:10)
[2022-12-11] MEDS ORDERED: ACETAMINOPHEN TAB 650MG DOSE (2X325MG) PO PRN (21:10)
[2022-12-11] MEDS ORDERED: ONDANSETRON 4MG 2ML VIAL IV PRN (21:10)
[2022-12-11] MEDS ORDERED: ASPIRIN 300 MG SUPP PR ONE (21:10)
[2022-12-11] MEDS ORDERED: LR 1,000 ML IV SCH (21:10)
[2022-12-11] MEDS ORDERED: VANCOMYCIN HCL 1,000 MG, VIAL MATE ADAPTER 1 EACH in NS 250 ML IV ONE (22:00)
[2022-12-11] MEDS ORDERED: METH-1164 PO (22:35)
[2022-12-11] MEDS ORDERED: SODI650T PO (22:35)
[2022-12-11] MEDS ORDERED: GABA-1171 PO (22:35)
[2022-12-11] MEDS ORDERED: FURO40TA2 PO (22:35)
[2022-12-11] MEDS ORDERED: LIDO1PAD TOP (22:35)
[2022-12-11] MEDS ORDERED: OXYC5CAP56 PO (22:35)
[2022-12-11] MEDS ORDERED: GERI8.6T PO (22:35)
[2022-12-11] MEDS ORDERED: ACET-683 PO (22:35)
[2022-12-11] MEDS ORDERED: PRES10CA2 PO (22:35)
[2022-12-11] MEDS ORDERED: HOME MED LIST COMPLETE! XX SCH (22:40)
[2022-12-12] VITALS (11 sets, daily range): BP systolic 117–167; BP diastolic 65–81; TEMP 97.6–102.8; O2SAT 94–100
[2022-12-12] MEDS ORDERED: AZITHROMYCIN INJ 500 MG, VIAL MATE ADAPTER 1 EACH in NS 250 ML IV SCH ×3
[2022-12-12 00:34] LABS: HEMATOCRIT 22.8 % (36.0-47.0); HEMOGLOBIN 7.3 g/dl (12.0-15.5)
[2022-12-12 01:05] LABS: CALCIUM LEVEL 8.2 MG/DL (8.3-10.6); CREATININE FOR GFR 1.38 MG/DL (0.55-1.30); GLOMERULAR FILTRATION RATE 38.8 (>32); POTASSIUM SERUM 4.5 MMOL/L (3.5-5.1)
[2022-12-12] MEDS: ALBUTEROL SULFATE 2.5MG/0.5ML INH NEB SOLN INH SCH ×4 (01:29→19:27)
[2022-12-12] MEDS: PIPERACILLIN/TAZOBACTAM SOD 2.25 GM in D5W MINI-BAG PLUS 50 ML IV SCH ×2 (02:05→06:22)
[2022-12-12] MEDS: HEPARIN SOD (PORCINE) 5000UNITS/ML 1ML VIAL/SYRINGE SC SCH ×2 (06:22→13:20)
[2022-12-12 06:38] LABS: HEMATOCRIT 26.1 % (36.0-47.0); HEMOGLOBIN 8.2 g/dl (12.0-15.5); MEAN CORPUSCULAR HEMOGLOBIN 30.3 pg (27.0-33.0); MEAN CORPUSCULAR HGB CONC 31.4 g/dl (32.0-36.5); MEAN CORPUSCULAR VOLUME 96.3 fl (80.0-96.0); PLATELET COUNT, AUTOMATED 314 10^3/uL (150-450); RED BLOOD COUNT 2.71 10^6/uL (4.00-5.40); WHITE BLOOD COUNT 18.8 10^3/uL (4.0-10.0)
[2022-12-12 07:10] LABS: ALBUMIN 2.2 G/DL (3.2-5.2); BILIRUBIN,TOTAL 1.8 MG/DL (0.3-1.2); CALCIUM LEVEL 8.5 MG/DL (8.3-10.6); CREATININE FOR GFR 1.35 MG/DL (0.55-1.30); GLOMERULAR FILTRATION RATE 39.8 (>32); MAGNESIUM LEVEL 1.8 MG/DL (1.8-2.4); POTASSIUM SERUM 4.1 MMOL/L (3.5-5.1); TOTAL PROTEIN 6.2 G/DL (5.7-8.2)
[2022-12-12 08:46] LABS: CK-MB VALUE MASS 8.7 NG/ML (<3.6)
[2022-12-12] MEDS ORDERED: ASPIRIN 300 MG SUPP PR SCH (09:00)
[2022-12-12] MEDS ORDERED: ASPIRIN 81MG ENTERIC TABLET PO SCH (09:00)
[2022-12-12] MEDS: PANTOPRAZOLE 40MG TAB (PROTONIX) PO SCH (09:00)
[2022-12-12 09:13] LABS: IMMUNOGLOBULIN M 1133.3 MG/DL (50-300); MB/CK RELATIVE INDEX 5.47 (< OR =4)
[2022-12-12] MEDS ORDERED: LR 1,000 ML IV SCH (09:15)
[2022-12-12] MEDS ORDERED: ACETAMINOPHEN *IV* 1,000 MG in IV 1 EA IV ONE (10:00)
[2022-12-12] MEDS: cefTRIAXone SOD 2 GM in D5W MINI-BAG PLUS 50 ML IV SCH ×2 (10:05→22:16)
[2022-12-12] MEDS ORDERED: NS 1,000 ML IV SCH (11:15)
[2022-12-12] MEDS: AMPICILLIN SOD 2 GM in D5W MINI-BAG PLUS 100 ML IV SCH ×3 (11:52→23:51)
[2022-12-12] MEDS ORDERED: VANCOMYCIN HCL 750 MG, VIAL MATE ADAPTER 1 EACH in D5W 250 ML IV SCH (12:00)
[2022-12-12] MEDS: NS 0.45% 1,000 ML IV SCH ×2 (12:48→22:01)
[2022-12-12] MEDS ORDERED: VANCOMYCIN HCL 500 MG in D5W MINI-BAG PLUS 100 ML IV SCH (13:00)
[2022-12-12] MEDS: ACYCLOVIR IV SCH (13:20)
[2022-12-12] MEDS: D5W IV SCH (13:20)
[2022-12-12] MEDS ORDERED: OLANZapine INTRAMUSCULAR 10MG VIAL IM ONE (14:30)
[2022-12-13] VITALS (10 sets, daily range): BP systolic 113–154; BP diastolic 65–88; TEMP 97–100.2; O2SAT 95–99
[2022-12-13] MEDS: ALBUTEROL SULFATE 2.5MG/0.5ML INH NEB SOLN INH SCH ×4 (01:04→19:35)
[2022-12-13] MEDS: ACYCLOVIR IV SCH (01:16)
[2022-12-13] MEDS: D5W IV SCH (01:16)
[2022-12-13] MEDS: AMPICILLIN SOD 2 GM in D5W MINI-BAG PLUS 100 ML IV SCH ×2 (05:38→10:25)
[2022-12-13 07:32] LABS: BASO % 0.1 % (0.0-1.0); HEMATOCRIT 23.2 % (36.0-47.0); HEMOGLOBIN 7.5 g/dl (12.0-15.5); LYMPH # 0.9 10^3/uL (1.5-5.0); LYMPH % 6.1 % (24.0-44.0); MEAN CORPUSCULAR HEMOGLOBIN 30.4 pg (27.0-33.0); MEAN CORPUSCULAR HGB CONC 32.3 g/dl (32.0-36.5); MEAN CORPUSCULAR VOLUME 93.9 fl (80.0-96.0); MONO # 0.5 10^3/uL (0.0-0.8); MONO % 3.6 % (2.0-8.0); NEUTROPHILS # 12.5 10^3/uL (1.5-8.5); NEUTROPHILS % 88.7 % (36.0-66.0); PLATELET COUNT, AUTOMATED 302 10^3/uL (150-450); RED BLOOD COUNT 2.47 10^6/uL (4.00-5.40)
[2022-12-13 07:59] LABS: BILIRUBIN,TOTAL 0.7 MG/DL (0.3-1.2); CALCIUM LEVEL 8.3 MG/DL (8.3-10.6); CREATININE FOR GFR 1.16 MG/DL (0.55-1.30); GLOMERULAR FILTRATION RATE 47.4 (>32); MAGNESIUM LEVEL 1.9 MG/DL (1.8-2.4); POTASSIUM SERUM 3.5 MMOL/L (3.5-5.1)
[2022-12-13] MEDS: NS 0.45% 1,000 ML IV SCH (10:21)
[2022-12-13] MEDS: EZETIMIBE 10MG TABLET (ZETIA) PO SCH (10:24)
[2022-12-13] MEDS: PANTOPRAZOLE 40MG TAB (PROTONIX) PO SCH (10:25)
[2022-12-13] MEDS: cefTRIAXone SOD 2 GM in D5W MINI-BAG PLUS 50 ML IV SCH ×2 (10:25→21:12)
[2022-12-13 15:15] LABS: COLOR, CSF COLORLESS (COLORLESS); CSF TUBE# CELL CNT TUBE 1
[2022-12-13 15:16] LABS: APPEARANCE, CSF CLEAR (CLEAR)
[2022-12-13 15:39] LABS: CSF TUBE# TP TUBE 2; TOTAL PROTEIN,CSF 99.8 MG/DL (15-45)
[2022-12-13 15:41] LABS: CSF TUBE# GLU TUBE 2
[2022-12-13 19:18] LABS: HEMATOCRIT 28.5 % (36.0-47.0); HEMOGLOBIN 9.4 g/dl (12.0-15.5); MEAN CORPUSCULAR HEMOGLOBIN 31.1 pg (27.0-33.0); MEAN CORPUSCULAR VOLUME 94.4 fl (80.0-96.0); PLATELET COUNT, AUTOMATED 284 10^3/uL (150-450); RED BLOOD COUNT 3.02 10^6/uL (4.00-5.40); WHITE BLOOD COUNT 12.8 10^3/uL (4.0-10.0)
[2022-12-14] MEDS: ALBUTEROL SULFATE 2.5MG/0.5ML INH NEB SOLN INH SCH ×2 (01:12→08:00)
[2022-12-14 04:00] VITALS: BP 119/60; TEMP 97; O2SAT 94
[2022-12-14 07:27] VITALS: BP 137/75; TEMP 98.3; O2SAT 98
[2022-12-14 07:47] LABS: BASO % 0.1 % (0.0-1.0); HEMATOCRIT 30.1 % (36.0-47.0); HEMOGLOBIN 9.9 g/dl (12.0-15.5); LYMPH # 0.8 10^3/uL (1.5-5.0); LYMPH % 8.7 % (24.0-44.0); MEAN CORPUSCULAR HEMOGLOBIN 30.9 pg (27.0-33.0); MEAN CORPUSCULAR HGB CONC 32.9 g/dl (32.0-36.5); MEAN CORPUSCULAR VOLUME 94.1 fl (80.0-96.0); MONO # 0.3 10^3/uL (0.0-0.8); MONO % 3.1 % (2.0-8.0); NEUTROPHILS # 7.9 10^3/uL (1.5-8.5); NEUTROPHILS % 85.9 % (36.0-66.0); PLATELET COUNT, AUTOMATED 307 10^3/uL (150-450); WHITE BLOOD COUNT 9.2 10^3/uL (4.0-10.0)
[2022-12-14 08:19] LABS: ALBUMIN 2.2 G/DL (3.2-5.2); BILIRUBIN,TOTAL 0.8 MG/DL (0.3-1.2); CALCIUM LEVEL 8.5 MG/DL (8.3-10.6); CREATININE FOR GFR 1.02 MG/DL (0.55-1.30); MAGNESIUM LEVEL 1.9 MG/DL (1.8-2.4); POTASSIUM SERUM 3.8 MMOL/L (3.5-5.1); TOTAL PROTEIN 6.5 G/DL (5.7-8.2)
[2022-12-14] MEDS ORDERED: ALBUTEROL SULFATE 2.5MG/0.5ML INH NEB SOLN NEB PRN (08:25)
[2022-12-14] MEDS: PANTOPRAZOLE 40MG TAB (PROTONIX) PO SCH (09:07)
[2022-12-14] MEDS: EZETIMIBE 10MG TABLET (ZETIA) PO SCH (09:07)
[2022-12-14] MEDS: cefTRIAXone SOD 2 GM in D5W MINI-BAG PLUS 50 ML IV SCH ×2 (09:07→21:19)
[2022-12-14] MEDS ORDERED: oxyCODONE 5MG TAB PO PRN (10:00)
[2022-12-14] MEDS: ASPIRIN 81MG ENTERIC TABLET PO SCH (11:49)
[2022-12-14 12:15] VITALS: BP 144/82; TEMP 97.9; O2SAT 96
[2022-12-14] MEDS: LOSARTAN 25 MG TAB PO SCH (15:53)
[2022-12-14 16:08] VITALS: BP 138/81; TEMP 97.3; O2SAT 99
[2022-12-14 20:00] VITALS: BP 139/87; TEMP 97.6; O2SAT 95
[2022-12-14] MEDS: HEPARIN SOD (PORCINE) 5000UNITS/ML 1ML VIAL/SYRINGE SQ SCH (21:19)
[2022-12-15 06:00] VITALS: BP 136/86; TEMP 97.8; O2SAT 99
[2022-12-15 06:06] LABS: BASO % 0.2 % (0.0-1.0); HEMATOCRIT 27.9 % (36.0-47.0); HEMOGLOBIN 8.9 g/dl (12.0-15.5); LYMPH # 0.9 10^3/uL (1.5-5.0); LYMPH % 15.6 % (24.0-44.0); MEAN CORPUSCULAR HEMOGLOBIN 30.3 pg (27.0-33.0); MEAN CORPUSCULAR HGB CONC 31.9 g/dl (32.0-36.5); MEAN CORPUSCULAR VOLUME 94.9 fl (80.0-96.0); MONO # 0.3 10^3/uL (0.0-0.8); MONO % 5.3 % (2.0-8.0); NEUTROPHILS # 4.3 10^3/uL (1.5-8.5); NEUTROPHILS % 74.1 % (36.0-66.0); PLATELET COUNT, AUTOMATED 286 10^3/uL (150-450); RED BLOOD COUNT 2.94 10^6/uL (4.00-5.40); WHITE BLOOD COUNT 5.8 10^3/uL (4.0-10.0)
[2022-12-15 06:29] LABS: BILIRUBIN,TOTAL 0.6 MG/DL (0.3-1.2); CALCIUM LEVEL 8.7 MG/DL (8.3-10.6); CREATININE FOR GFR 1.06 MG/DL (0.55-1.30); GLOMERULAR FILTRATION RATE 52.6 (>32); MAGNESIUM LEVEL 1.9 MG/DL (1.8-2.4); POTASSIUM SERUM 4.2 MMOL/L (3.5-5.1); TOTAL PROTEIN 5.7 G/DL (5.7-8.2)
[2022-12-15 08:00] VITALS: BP 132/82; TEMP 98.2; O2SAT 98
[2022-12-15] MEDS ORDERED: OMEPRAZOLE 20MG CAP PO SCH (09:00)
[2022-12-15] MEDS ORDERED: CEFTINJ2 IV ×2 (09:59→10:11)
[2022-12-15] MEDS ORDERED: EZET10TA21 PO (10:11)
[2022-12-15] MEDS ORDERED: dexameTHASONE IV ×2 (10:11)
[2022-12-15] MEDS ORDERED: HEPA500023 SQ (10:11)
[2022-12-15] MEDS ORDERED: GABA-1171 PO (10:15)
[2022-12-15] MEDS: cefTRIAXone SOD 2 GM in D5W MINI-BAG PLUS 50 ML IV SCH (10:47)
[2022-12-15] MEDS: HEPARIN SOD (PORCINE) 5000UNITS/ML 1ML VIAL/SYRINGE SQ SCH (10:48)
[2022-12-15] MEDS: ASPIRIN 81MG ENTERIC TABLET PO SCH (10:48)
[2022-12-15] MEDS: PANTOPRAZOLE 40MG TAB (PROTONIX) PO SCH (10:51)
[2022-12-15 10:53] VITALS: BP 132/82
[2022-12-15] MEDS: LOSARTAN 25 MG TAB PO SCH (10:53)
[2022-12-15 16:08] LABS: BODY FLUID CULTURE Not indicated. (.); LEGIONELLA ANTIGEN URINE Negative (Negative); ORGANISM ID Not indicated. (.); SPECIMEN SOURCE Urine (.); URINE STREP PNEUMONIAE ANTIGEN Negative (Negative)
== END 2022-12-15 11:39 | DRG 871 ==
LOC: M ED 15:44 → M ED INP 21:07 → M PCU 12-12 00:55 → UNDODISIN 12-15 11:39
PROVIDERS: ADMIT Internal Medicine; ATTEND Internal Medicine
PROC: 30233N1 Transfusion of Nonautologous Red Blood Cells into Peripheral Vein, Percutaneous Approach (ICD-10-PCS; 2022-12-11)
PROC: B246ZZZ Ultrasonography of Right and Left Heart (ICD-10-PCS; principal; 2022-12-12)
PROC: 009U3ZX Drainage of Spinal Canal, Percutaneous Approach, Diagnostic (ICD-10-PCS; 2022-12-13)
DX: A41.9 Sepsis, unspecified organism (principal); J18.9 Pneumonia, unspecified organism; I21.A1 Myocardial infarction type 2; G93.41 Metabolic encephalopathy; J96.01 Acute respiratory failure with hypoxia; G03.9 Meningitis, unspecified; N39.0 Urinary tract infection, site not specified; N17.9 Acute kidney failure, unspecified; E87.4 Mixed disorder of acid-base balance; E87.1 Hypo-osmolality and hyponatremia; I47.20 Ventricular tachycardia, unspecified; E87.3 Alkalosis; Z66 Do not resuscitate; R65.20 Severe sepsis without septic shock; D64.9 Anemia, unspecified; C88.0 Waldenstrom macroglobulinemia; K80.20 Calculus of gallbladder without cholecystitis without obstruction; N18.30 Chronic kidney disease, stage 3 unspecified; I12.9 Hypertensive chronic kidney disease with stage 1 through stage 4 chronic kidney disease, or unspecified chronic kidney disease; G89.29 Other chronic pain; K59.00 Constipation, unspecified; M54.9 Dorsalgia, unspecified; Z85.3 Personal history of malignant neoplasm of breast; G62.9 Polyneuropathy, unspecified; K21.9 Gastro-esophageal reflux disease without esophagitis; B95.5 Unspecified streptococcus as the cause of diseases classified elsewhere; Z79.82 Long term (current) use of aspirin; D53.9 Nutritional anemia, unspecified; E78.00 Pure hypercholesterolemia, unspecified; Z90.11 Acquired absence of right breast and nipple; Z79.899 Other long term (current) drug therapy; Z88.8 Allergy status to other drugs, medicaments and biological substances

== ENCOUNTER 2022-12-16 15:59 | Day surgery (SDC) | payer MEDICARE, OTHER ==
[~2022-12-16 15:59] MED LIST changes: +ACET-683 PO; +CEFTINJ2 IV; +CETACAINE SPRAY 5GM As Ordered ONE; +EZET10TA21 PO; +FURO40TA2 PO; +GABA-1171 PO; +GERI8.6T PO; +HEPA500023 SQ; +LIDO1PAD TOP; +METH-1164 PO; +OXYC5CAP56 PO; +PRES10CA2 PO; +SODI650T PO; +dexameTHASONE IV
[2022-12-16 16:30] VITALS: TEMP 97.4
[2022-12-16 16:45] VITALS: BP 156/72; O2SAT 98
[2022-12-22] MEDS ORDERED: LOSA-527 PO (11:12)
== END 2022-12-16 16:45 | disposition home or self-care (01) ==
LOC: M SDC 15:59
PROVIDERS: ATTEND Internal Medicine Cardiovascular Disease
DX: I08.0 Rheumatic disorders of both mitral and aortic valves (principal); I70.0 Atherosclerosis of aorta; R78.81 Bacteremia; B95.4 Other streptococcus as the cause of diseases classified elsewhere; G03.9 Meningitis, unspecified; I12.9 Hypertensive chronic kidney disease with stage 1 through stage 4 chronic kidney disease, or unspecified chronic kidney disease; K21.9 Gastro-esophageal reflux disease without esophagitis; N18.30 Chronic kidney disease, stage 3 unspecified; G62.9 Polyneuropathy, unspecified; C88.0 Waldenstrom macroglobulinemia; M54.9 Dorsalgia, unspecified; Z85.3 Personal history of malignant neoplasm of breast; Z90.11 Acquired absence of right breast and nipple; Z98.49 Cataract extraction status, unspecified eye; Z96.653 Presence of artificial knee joint, bilateral; Z79.899 Other long term (current) drug therapy; Z79.82 Long term (current) use of aspirin; Z79.891 Long term (current) use of opiate analgesic; Z88.8 Allergy status to other drugs, medicaments and biological substances

== ENCOUNTER → 2023-06-14 | Outpatient (REF) | payer MEDICARE, OTHER ==
[~2023-06-14] MED LIST changes: -CELE1CAP8 PO; +CELE1CAP99 PO; -CETACAINE SPRAY 5GM As Ordered ONE; -GERI8.6T PO; +LOSA-527 PO; +SENN-193 PO
[2023-06-14 12:29] LABS: BASO % 0.5 % (0.0-1.0); EOS # 0.1 10^3/uL (0.0-0.5); EOS % 1.6 % (0.0-3.0); HEMATOCRIT 29.8 % (36.0-47.0); HEMOGLOBIN 9.3 g/dl (12.0-15.5); LYMPH # 2.2 10^3/uL (1.5-5.0); LYMPH % 29.7 % (24.0-44.0); MEAN CORPUSCULAR HEMOGLOBIN 30.8 pg (27.0-33.0); MEAN CORPUSCULAR HGB CONC 31.2 g/dl (32.0-36.5); MEAN CORPUSCULAR VOLUME 98.7 fl (80.0-96.0); MONO # 0.7 10^3/uL (0.0-0.8); MONO % 9.6 % (2.0-8.0); NEUTROPHILS # 4.4 10^3/uL (1.5-8.5); NEUTROPHILS % 58.2 % (36.0-66.0); PLATELET COUNT, AUTOMATED 391 10^3/uL (150-450); RED BLOOD COUNT 3.02 10^6/uL (4.00-5.40); WHITE BLOOD COUNT 7.5 10^3/uL (4.0-10.0)
[2023-06-14 12:59] LABS: ERYTHROCYTE SEDIMENTATION RATE 66 mm/hr (0-30)
== END ==
LOC: M LABDRAWC 11:17
PROVIDERS: ATTEND Orthopaedic Surgery
DX: Z96.652 Presence of left artificial knee joint (principal)

== ENCOUNTER → 2023-07-10 | Outpatient (CLI) | payer MEDICARE, OTHER | LOC: M RAD 09:02 | PROVIDERS: ATTEND Orthopaedic Surgery | DX: Z96.652 Presence of left artificial knee joint (principal) | CPT/HCPCS: 78315; A9503 ==

== ENCOUNTER → 2023-07-24 | Outpatient (REF) | payer MEDICARE, OTHER ==
[2023-07-24 13:46] LABS: CRYSTALS, BODY FLUID NONE SEEN (NONE SEEN); SOURCE, BODY FLUID CRYSTALS LFT KNEE
[2023-07-24 14:12] LABS: SOURCE, BODY FLUID GLUCOSE LFT KNEE
[2023-07-24 14:18] LABS: SOURCE, BODY FLUID LFT KNEE; SYNOVIAL FLUID COLOR AMBER (COLORLESS)
== END ==
LOC: M LAB REF 12:40
PROVIDERS: ATTEND Orthopaedic Surgery
DX: M25.462 Effusion, left knee (principal)

== ENCOUNTER → 2023-08-08 | Outpatient (CLI) | payer MEDICARE, OTHER | LOC: M WHC 09:34 | PROVIDERS: ATTEND Internal Medicine | DX: Z12.31 Encounter for screening mammogram for malignant neoplasm of breast (principal) | CPT/HCPCS: 77067; G0279 ==

== ENCOUNTER → 2023-08-15 | Outpatient (REF) | payer MEDICARE, OTHER ==
[2023-08-15 19:07] LABS: BASO # 0.1 10^3/uL (0.0-0.2); BASO % 0.8 % (0.0-1.0); EOS # 0.2 10^3/uL (0.0-0.5); EOS % 2.4 % (0.0-3.0); HEMATOCRIT 31.8 % (36.0-47.0); HEMOGLOBIN 9.9 g/dl (12.0-15.5); LYMPH # 2.1 10^3/uL (1.5-5.0); LYMPH % 34.7 % (24.0-44.0); MEAN CORPUSCULAR HEMOGLOBIN 30.7 pg (27.0-33.0); MEAN CORPUSCULAR HGB CONC 31.1 g/dl (32.0-36.5); MEAN CORPUSCULAR VOLUME 98.5 fl (80.0-96.0); MONO # 0.6 10^3/uL (0.0-0.8); MONO % 9.9 % (2.0-8.0); NEUTROPHILS # 3.2 10^3/uL (1.5-8.5); PLATELET COUNT, AUTOMATED 311 10^3/uL (150-450); RED BLOOD COUNT 3.23 10^6/uL (4.00-5.40); WHITE BLOOD COUNT 6.2 10^3/uL (4.0-10.0)
[2023-08-15 19:40] LABS: CALCIUM LEVEL 9.3 MG/DL (8.3-10.6); CREATININE FOR GFR 1.25 MG/DL (0.55-1.30); GLOMERULAR FILTRATION RATE 43.4 (>32); POTASSIUM SERUM 4.5 MMOL/L (3.5-5.1); THYROID STIMULATING HORMONE 1.106 uIU/ML (0.55-4.78)
[2023-08-15 19:41] LABS: FREE T4 1.18 NG/DL (0.89-1.76)
== END ==
LOC: M LABDRAWC 16:41
PROVIDERS: ATTEND Internal Medicine
DX: Z13.89 Encounter for screening for other disorder (principal); D63.1 Anemia in chronic kidney disease; R60.9 Edema, unspecified; N18.9 Chronic kidney disease, unspecified

== ENCOUNTER → 2023-08-21 | Outpatient (REF) | payer MEDICARE, OTHER ==
[2023-08-21 17:19] LABS: PERCENT SATURATION 22.8 % (13.2-45.0)
== END ==
LOC: M LAB REF 16:22
PROVIDERS: ATTEND Internal Medicine
DX: D64.9 Anemia, unspecified (principal)

== ENCOUNTER 2023-08-23 10:09 | Outpatient (RCR) | payer MEDICARE, OTHER | END 2023-09-08 | LOC: M PT 10:09 | PROVIDERS: ATTEND Surgery | DX: I89.0 Lymphedema, not elsewhere classified (principal) ==

== ENCOUNTER → 2023-09-18 | Outpatient (REF) | payer MEDICARE, OTHER ==
[2023-09-18 18:23] LABS: BASO % 0.7 % (0.0-1.0); EOS # 0.4 10^3/uL (0.0-0.5); EOS % 7.7 % (0.0-3.0); HEMATOCRIT 32.7 % (36.0-47.0); HEMOGLOBIN 10.4 g/dl (12.0-15.5); LYMPH # 1.8 10^3/uL (1.5-5.0); LYMPH % 33.2 % (24.0-44.0); MEAN CORPUSCULAR HEMOGLOBIN 31.3 pg (27.0-33.0); MEAN CORPUSCULAR HGB CONC 31.8 g/dl (32.0-36.5); MEAN CORPUSCULAR VOLUME 98.5 fl (80.0-96.0); MONO # 0.5 10^3/uL (0.0-0.8); MONO % 9.3 % (2.0-8.0); NEUTROPHILS # 2.7 10^3/uL (1.5-8.5); NEUTROPHILS % 48.7 % (36.0-66.0); PLATELET COUNT, AUTOMATED 248 10^3/uL (150-450); RED BLOOD COUNT 3.32 10^6/uL (4.00-5.40); WHITE BLOOD COUNT 5.5 10^3/uL (4.0-10.0)
[2023-09-18 18:29] LABS: ERYTHROCYTE SEDIMENTATION RATE 122 mm/hr (0-30)
== END ==
LOC: M SFHCCLAY 09:25
PROVIDERS: ATTEND Internal Medicine Infectious Disease
DX: A49.1 Streptococcal infection, unspecified site (principal)

== ENCOUNTER → 2023-10-11 | Outpatient (REF) | payer MEDICARE, OTHER ==
[~2023-10-11] MED LIST changes: +CALCCAP4 PO; +CEFA500C2; +DICL100G10; +ESSETAB4 PO; +TORS10TA3
[2023-10-11 17:35] LABS: BASO % 0.4 % (0.0-1.0); EOS # 0.1 10^3/uL (0.0-0.5); EOS % 2.5 % (0.0-3.0); HEMATOCRIT 30.5 % (36.0-47.0); HEMOGLOBIN 9.7 g/dl (12.0-15.5); LYMPH # 1.6 10^3/uL (1.5-5.0); LYMPH % 31.8 % (24.0-44.0); MEAN CORPUSCULAR HEMOGLOBIN 31.3 pg (27.0-33.0); MEAN CORPUSCULAR HGB CONC 31.8 g/dl (32.0-36.5); MEAN CORPUSCULAR VOLUME 98.4 fl (80.0-96.0); MONO # 0.6 10^3/uL (0.0-0.8); NEUTROPHILS # 2.7 10^3/uL (1.5-8.5); NEUTROPHILS % 53.1 % (36.0-66.0); PLATELET COUNT, AUTOMATED 257 10^3/uL (150-450); WHITE BLOOD COUNT 5.2 10^3/uL (4.0-10.0)
[2023-10-11 17:46] LABS: ALBUMIN 3.6 G/DL (3.2-5.2); ALKALINE PHOSPHATASE 194 U/L (46-116); ALT/SGPT 22 U/L (7.0-40); AST/SGOT 19 U/L (<34); BILIRUBIN,TOTAL 0.5 MG/DL (0.3-1.2); BLOOD UREA NITROGEN 33 MG/DL (9-23); CALCIUM LEVEL 9.3 MG/DL (8.3-10.6); CARBON DIOXIDE LEVEL 27 MMOL/L (20-31); CHLORIDE LEVEL 97 MMOL/L (98-107); CREATININE FOR GFR 1.18 MG/DL (0.55-1.30); GLOMERULAR FILTRATION RATE 46.3 (>32); GLUCOSE, FASTING 80 MG/DL (74-106); POTASSIUM SERUM 4.4 MMOL/L (3.5-5.1); SODIUM LEVEL 132 MMOL/L (136-145); TOTAL PROTEIN 7.4 G/DL (5.7-8.2)
[2023-10-11 17:49] LABS: IMMUNOGLOBULIN A 80.8 MG/DL (40-350)
[2023-10-11 17:51] LABS: IMMUNOGLOBULIN G 1225 MG/DL (650-1600)
[2023-10-14 01:16] LABS: T P ELECTROPHORESIS SO 7.4 g/dL (6.1-8.1)
[2023-10-16 16:42] LABS: FREE KAPPA LIGHT CHAINS SERUM 69.6 mg/L (3.3-19.4); FREE LAMBDA LIGHT CHAINS SERUM 48.9 mg/L (5.7-26.3); KAPPA/LAMBDA RATIO SERUM 1.42 (0.26-1.65)
[2023-10-16 21:48] LABS: SERUM VISCOSITY 1.9 rel to H2O (1.5-1.9)
[2023-10-17 07:47] LABS: ALBUMIN SPEP 3.9 g/dL (3.8-4.8); ALPHA-1-GLOBULINS SO 0.4 g/dL (0.2-0.3); ALPHA-2-GLOBULINS SO 0.8 g/dL (0.5-0.9); BETA 2 GLOBULIN 0.7 g/dL (0.2-0.5); BETA-GLOBULIN SO 0.5 g/dL (0.4-0.6); GAMMA GLOBULINS SO 1.1 g/dL (0.8-1.7)
== END ==
LOC: M LABDRAWC 16:41
PROVIDERS: ATTEND Internal Medicine Medical Oncology
DX: D89.0 Polyclonal hypergammaglobulinemia (principal)

== ENCOUNTER → 2023-11-07 | Outpatient (CLI) | payer MEDICARE, OTHER ==
[~2023-11-07] MED LIST changes: +LIDOCAINE 1% MDV 20ML VIAL As Ordered ONE
[2023-11-07 08:19] VITALS: TEMP 98.8
[2023-11-07 09:11] LABS: BASO % 0.6 % (0.0-1.0); EOS # 0.1 10^3/uL (0.0-0.5); EOS % 1.5 % (0.0-3.0); HEMATOCRIT 31.6 % (36.0-47.0); HEMOGLOBIN 10.3 g/dl (12.0-15.5); LYMPH # 1.2 10^3/uL (1.5-5.0); LYMPH % 25.4 % (24.0-44.0); MEAN CORPUSCULAR HEMOGLOBIN 31.7 pg (27.0-33.0); MEAN CORPUSCULAR HGB CONC 32.6 g/dl (32.0-36.5); MEAN CORPUSCULAR VOLUME 97.2 fl (80.0-96.0); MONO # 0.4 10^3/uL (0.0-0.8); MONO % 8.8 % (2.0-8.0); NEUTROPHILS % 63.5 % (36.0-66.0); PLATELET COUNT, AUTOMATED 290 10^3/uL (150-450); RED BLOOD COUNT 3.25 10^6/uL (4.00-5.40); WHITE BLOOD COUNT 4.8 10^3/uL (4.0-10.0)
[2023-11-07 09:20] VITALS: BP 161/75; O2SAT 99
== END ==
LOC: M IRPRO 08:15
PROVIDERS: ATTEND Internal Medicine Medical Oncology
DX: C88.9 Malignant immunoproliferative disease, unspecified (principal)

== ENCOUNTER → 2023-12-25 | Outpatient (REF) | payer MEDICARE, OTHER ==
[~2023-12-25] MED LIST changes: -LIDOCAINE 1% MDV 20ML VIAL As Ordered ONE
[2023-12-25 11:57] LABS: BASO # 0.1 10^3/uL (0.0-0.2); EOS # 0.1 10^3/uL (0.0-0.5); EOS % 2.6 % (0.0-3.0); HEMATOCRIT 32.2 % (36.0-47.0); HEMOGLOBIN 10.3 g/dl (12.0-15.5); LYMPH # 1.5 10^3/uL (1.5-5.0); LYMPH % 30.7 % (24.0-44.0); MEAN CORPUSCULAR HEMOGLOBIN 31.9 pg (27.0-33.0); MEAN CORPUSCULAR VOLUME 99.7 fl (80.0-96.0); MONO # 0.4 10^3/uL (0.0-0.8); MONO % 8.9 % (2.0-8.0); NEUTROPHILS # 2.8 10^3/uL (1.5-8.5); NEUTROPHILS % 56.6 % (36.0-66.0); PLATELET COUNT, AUTOMATED 256 10^3/uL (150-450); RED BLOOD COUNT 3.23 10^6/uL (4.00-5.40); WHITE BLOOD COUNT 4.9 10^3/uL (4.0-10.0)
[2023-12-25 12:08] LABS: ERYTHROCYTE SEDIMENTATION RATE 70 mm/hr (0-30)
== END ==
LOC: M SFHCCLAY 08:21
PROVIDERS: ATTEND Internal Medicine Infectious Disease
DX: A49.1 Streptococcal infection, unspecified site (principal)

== ENCOUNTER → 2024-01-08 | Outpatient (REF) | payer MEDICARE, OTHER ==
[2024-01-08 19:10] LABS: BASO % 0.6 % (0.0-1.0); EOS # 0.1 10^3/uL (0.0-0.5); EOS % 1.9 % (0.0-3.0); HEMOGLOBIN 10.2 g/dl (12.0-15.5); LYMPH # 1.5 10^3/uL (1.5-5.0); LYMPH % 29.6 % (24.0-44.0); MEAN CORPUSCULAR HEMOGLOBIN 32.2 pg (27.0-33.0); MEAN CORPUSCULAR HGB CONC 31.9 g/dl (32.0-36.5); MEAN CORPUSCULAR VOLUME 100.9 fl (80.0-96.0); MONO # 0.6 10^3/uL (0.0-0.8); MONO % 11.7 % (2.0-8.0); NEUTROPHILS # 2.9 10^3/uL (1.5-8.5); PLATELET COUNT, AUTOMATED 234 10^3/uL (150-450); RED BLOOD COUNT 3.17 10^6/uL (4.00-5.40); WHITE BLOOD COUNT 5.1 10^3/uL (4.0-10.0)
[2024-01-08 19:51] LABS: ALBUMIN 3.7 G/DL (3.2-5.2); BILIRUBIN,TOTAL 0.5 MG/DL (0.3-1.2); CALCIUM LEVEL 9.7 MG/DL (8.3-10.6); CREATININE FOR GFR 1.39 MG/DL (0.55-1.30); GLOMERULAR FILTRATION RATE 38.4 (>32); POTASSIUM SERUM 4.2 MMOL/L (3.5-5.1); TOTAL PROTEIN 7.3 G/DL (5.7-8.2)
== END ==
LOC: M LABDRAWC 16:48
PROVIDERS: ATTEND Internal Medicine
DX: D64.9 Anemia, unspecified (principal)

== ENCOUNTER → 2024-01-19 | Outpatient (REF) | payer MEDICARE, OTHER ==
[2024-01-19 18:26] LABS: BASO % 0.5 % (0.0-1.0); EOS # 0.1 10^3/uL (0.0-0.5); EOS % 0.9 % (0.0-3.0); HEMOGLOBIN 10.3 g/dl (12.0-15.5); LYMPH # 0.8 10^3/uL (1.5-5.0); LYMPH % 14.2 % (24.0-44.0); MEAN CORPUSCULAR HEMOGLOBIN 32.2 pg (27.0-33.0); MEAN CORPUSCULAR HGB CONC 32.2 g/dl (32.0-36.5); MONO # 0.5 10^3/uL (0.0-0.8); MONO % 7.7 % (2.0-8.0); NEUTROPHILS # 4.5 10^3/uL (1.5-8.5); NEUTROPHILS % 76.4 % (36.0-66.0); PLATELET COUNT, AUTOMATED 210 10^3/uL (150-450); WHITE BLOOD COUNT 5.9 10^3/uL (4.0-10.0)
[2024-01-19 19:00] LABS: IMMUNOGLOBULIN A 61.3 MG/DL (40-350)
[2024-01-19 19:01] LABS: IMMUNOGLOBULIN G 899 MG/DL (650-1600)
[2024-01-19 19:02] LABS: ALBUMIN 3.8 G/DL (3.2-5.2); ALKALINE PHOSPHATASE 184 U/L (46-116); ALT/SGPT 41 U/L (7.0-40); AST/SGOT 33 U/L (<34); BILIRUBIN,TOTAL 0.5 MG/DL (0.3-1.2); BLOOD UREA NITROGEN 40 MG/DL (9-23); CALCIUM LEVEL 9.2 MG/DL (8.3-10.6); CARBON DIOXIDE LEVEL 24 MMOL/L (20-31); CHLORIDE LEVEL 104 MMOL/L (98-107); CREATININE FOR GFR 1.25 MG/DL (0.55-1.30); GLOMERULAR FILTRATION RATE 43.4 (>32); GLUCOSE, FASTING 82 MG/DL (74-106); POTASSIUM SERUM 4.6 MMOL/L (3.5-5.1); SODIUM LEVEL 135 MMOL/L (136-145); TOTAL PROTEIN 7.2 G/DL (5.7-8.2)
[2024-01-22 13:56] LABS: ERYTHROPOIETIN 11.5 mIU/mL (2.6-18.5)
[2024-01-22 14:18] LABS: FREE KAPPA LIGHT CHAINS SERUM 44.3 mg/L (3.3-19.4); FREE LAMBDA LIGHT CHAINS SERUM 40.3 mg/L (5.7-26.3)
[2024-01-22 19:08] LABS: ALPHA-1-GLOBULINS SO 0.3 g/dL (0.2-0.3); ALPHA-2-GLOBULINS SO 0.7 g/dL (0.5-0.9); BETA 2 GLOBULIN 0.6 g/dL (0.2-0.5); BETA-GLOBULIN SO 0.5 g/dL (0.4-0.6); GAMMA GLOBULINS SO 0.9 g/dL (0.8-1.7)
[2024-01-24 18:23] LABS: SERUM VISCOSITY 1.7 rel to H2O (1.5-1.9)
== END ==
LOC: M LABDRAWC 17:24
PROVIDERS: ATTEND Internal Medicine Medical Oncology
DX: D64.9 Anemia, unspecified (principal)

== ENCOUNTER → 2024-02-07 | Outpatient (REF) | payer MEDICARE, OTHER ==
[2024-02-07 17:43] LABS: APPEARANCE, URINE HAZY (CLEAR); BACTERIA, URINE AUTO NEGATIVE (NEGATIVE); BILIRUBIN, URINE AUTO NEGATIVE (NEGATIVE); BLOOD, URINE BLOOD NEGATIVE (NEGATIVE); COLOR, URINE YELLOW (YELLOW); GLUCOSE, URINE (UA) AUTO NEGATIVE (NEGATIVE); KETONE, URINE AUTO NEGATIVE (NEGATIVE); LEUKOCYTE ESTERASE, URINE AUTO 2+ (NEGATIVE); NITRITE, URINE AUTO NEGATIVE (NEGATIVE); PROTEIN, URINE AUTO NEGATIVE (NEGATIVE); RBC, URINE AUTO 3 /HPF (0-3); SPECIFIC GRAVITY URINE AUTO 1.011 (1.002-1.035); SQUAMOUS EPITHELIAL CELL UR AU 1 /HPF (0-6); UROBILINOGEN, URINE AUTO 0.2 mg/dL (0.0-2.0); WBC, URINE AUTO 23 /HPF (0-3)
== END ==
LOC: M LABDRAWC 16:49
PROVIDERS: ATTEND Nurse Practitioner Adult Health
DX: R30.0 Dysuria (principal)

== ENCOUNTER 2024-02-15 12:17 | Observation (INO) | payer MEDICARE, OTHER ==
[~2024-02-15] VITALS: Ht 165.1 cm; Wt 60.0 kg
[~2024-02-15 12:17] MED LIST changes: -CEFA500C2; +CEFA500C2 PO; -TORS10TA3; +TORS10TA3 PO
[2024-02-15 13:20] LABS: VENOUS BASE EXCESS -0.4 (-2.0-2.0); VENOUS HCO3 21.4 MMOL/L (23.0-27.0); VENOUS O2 SATURATION 67.5 % (60.0-80.0); VENOUS PARTIAL PRESSURE O2 27.5 mmHg (30.0-50.0); VENOUS PH 7.516 UNITS (7.330-7.430); VENOUS STANDARD HCO3 23.5 MMOL/L; VENOUS TOTAL CO2 22.2 MMOL/L (24.0-28.0)
[2024-02-15 13:23] LABS: BASO % 0.3 % (0.0-1.0); EOS % 0.6 % (0.0-3.0); HEMATOCRIT 32.7 % (36.0-47.0); HEMOGLOBIN 11.1 g/dl (12.0-15.5); LYMPH # 1.3 10^3/uL (1.5-5.0); LYMPH % 20.6 % (24.0-44.0); MEAN CORPUSCULAR HEMOGLOBIN 32.3 pg (27.0-33.0); MEAN CORPUSCULAR HGB CONC 33.9 g/dl (32.0-36.5); MEAN CORPUSCULAR VOLUME 95.1 fl (80.0-96.0); MONO # 0.5 10^3/uL (0.0-0.8); MONO % 7.4 % (2.0-8.0); NEUTROPHILS # 4.4 10^3/uL (1.5-8.5); NEUTROPHILS % 70.6 % (36.0-66.0); PLATELET COUNT, AUTOMATED 299 10^3/uL (150-450); RED BLOOD COUNT 3.44 10^6/uL (4.00-5.40); WHITE BLOOD COUNT 6.2 10^3/uL (4.0-10.0)
[2024-02-15 13:48] LABS: THYROID STIMULATING HORMONE 0.9 uIU/ML (0.55-4.78)
[2024-02-15 13:52] LABS: ALBUMIN 3.8 G/DL (3.2-5.2); BILIRUBIN,DIRECT 0.2 MG/DL (<0.4); BILIRUBIN,TOTAL 0.6 MG/DL (0.3-1.2); CALCIUM LEVEL 10.6 MG/DL (8.3-10.6); CREATININE FOR GFR 1.39 MG/DL (0.55-1.30); GLOMERULAR FILTRATION RATE 38.4 (>32); POTASSIUM SERUM 4.8 MMOL/L (3.5-5.1); TOTAL PROTEIN 7.7 G/DL (5.7-8.2)
[2024-02-15] MEDS: MECLIZINE 25 MG TABLET PO ONE (17:05)
[2024-02-15] MEDS ORDERED: HOME MED LIST COMPLETE! XX SCH (18:35)
[2024-02-15] MEDS: NS 1,000 ML IV SCH (18:50)
[2024-02-15 19:31] LABS: PROCALCITONIN 0.04 ng/ml
[2024-02-15 20:11] VITALS: BP_SYST 105; BP_SYST 108; BP_DIAS 52; BP_DIAS 54; BP_DIAS 56; TEMP 97.3; O2SAT 98
[2024-02-15] MEDS: CEPHALEXIN 500 MG CAP PO SCH (21:12)
[2024-02-15] MEDS: HEPARIN SOD (PORCINE) 5000UNITS/ML 1ML VIAL/SYRINGE SC SCH (21:13)
[2024-02-16] VITALS (9 sets, daily range): BP systolic 97–124; BP diastolic 42–75; TEMP 97.2–97.9; O2SAT 95–99
[2024-02-16 05:54] LABS: BASO % 0.5 % (0.0-1.0); EOS # 0.2 10^3/uL (0.0-0.5); EOS % 3.7 % (0.0-3.0); HEMATOCRIT 29.3 % (36.0-47.0); HEMOGLOBIN 9.7 g/dl (12.0-15.5); LYMPH # 1.6 10^3/uL (1.5-5.0); MEAN CORPUSCULAR HEMOGLOBIN 32.2 pg (27.0-33.0); MEAN CORPUSCULAR HGB CONC 33.1 g/dl (32.0-36.5); MEAN CORPUSCULAR VOLUME 97.3 fl (80.0-96.0); MONO # 0.6 10^3/uL (0.0-0.8); MONO % 13.5 % (2.0-8.0); NEUTROPHILS % 45.6 % (36.0-66.0); PLATELET COUNT, AUTOMATED 235 10^3/uL (150-450); RED BLOOD COUNT 3.01 10^6/uL (4.00-5.40); WHITE BLOOD COUNT 4.3 10^3/uL (4.0-10.0)
[2024-02-16 06:26] LABS: CREATININE FOR GFR 1.28 MG/DL (0.55-1.30); GLOMERULAR FILTRATION RATE 42.2 (>32); POTASSIUM SERUM 4.4 MMOL/L (3.5-5.1)
[2024-02-16] MEDS: OMEPRAZOLE 20MG CAP PO SCH (10:10)
[2024-02-16] MEDS: ASPIRIN 81MG ENTERIC TABLET PO SCH (10:11)
[2024-02-17 00:09] VITALS: BP 107/54; TEMP 97.7; O2SAT 98
[2024-02-17 05:47] LABS: BASO % 0.4 % (0.0-1.0); EOS # 0.2 10^3/uL (0.0-0.5); EOS % 4.8 % (0.0-3.0); HEMATOCRIT 29.1 % (36.0-47.0); HEMOGLOBIN 9.3 g/dl (12.0-15.5); LYMPH % 42.1 % (24.0-44.0); MEAN CORPUSCULAR HEMOGLOBIN 31.6 pg (27.0-33.0); MONO # 0.6 10^3/uL (0.0-0.8); MONO % 12.2 % (2.0-8.0); NEUTROPHILS # 1.9 10^3/uL (1.5-8.5); NEUTROPHILS % 40.1 % (36.0-66.0); PLATELET COUNT, AUTOMATED 244 10^3/uL (150-450); RED BLOOD COUNT 2.94 10^6/uL (4.00-5.40); WHITE BLOOD COUNT 4.8 10^3/uL (4.0-10.0)
[2024-02-17 06:00] VITALS: BP_SYST 132; BP_SYST 134; BP_SYST 139; BP_DIAS 84; BP_DIAS 87; BP_DIAS 94; TEMP 97.5; O2SAT 98
[2024-02-17 06:11] LABS: CALCIUM LEVEL 9.1 MG/DL (8.3-10.6); CREATININE FOR GFR 1.24 MG/DL (0.55-1.30); GLOMERULAR FILTRATION RATE 43.8 (>32); POTASSIUM SERUM 4.6 MMOL/L (3.5-5.1)
[2024-02-17 08:01] VITALS: BP 130/64; TEMP 97.3; O2SAT 100
[2024-02-17] MEDS ORDERED: TORS10TA3 PO (11:23)
[2024-02-17] MEDS ORDERED: MECL-86 PO (11:23)
[2024-02-17 12:00] VITALS: BP 99/72; TEMP 97.7; O2SAT 98
[2024-02-17 12:30] VITALS: BP 118/52
== END 2024-02-17 12:56 | disposition home or self-care (01) ==
LOC: EDBD 12:17 → EDSEX 12:17 → M ED 12:17 → M ED INP 12:18 → M MSPAV 20:11
PROVIDERS: ADMIT Student in an Organized Health Care Education/Training Program; ATTEND Student in an Organized Health Care Education/Training Program
DX: R42 Dizziness and giddiness (principal); R53.1 Weakness; I44.0 Atrioventricular block, first degree; I49.1 Atrial premature depolarization; I65.21 Occlusion and stenosis of right carotid artery; H70.93 Unspecified mastoiditis, bilateral; G31.1 Senile degeneration of brain, not elsewhere classified; I67.82 Cerebral ischemia; N39.0 Urinary tract infection, site not specified; I27.20 Pulmonary hypertension, unspecified; E87.1 Hypo-osmolality and hyponatremia; I12.9 Hypertensive chronic kidney disease with stage 1 through stage 4 chronic kidney disease, or unspecified chronic kidney disease; K21.9 Gastro-esophageal reflux disease without esophagitis; N18.30 Chronic kidney disease, stage 3 unspecified; D63.1 Anemia in chronic kidney disease; C88.00 Waldenstrom macroglobulinemia not having achieved remission; Z85.3 Personal history of malignant neoplasm of breast; Z90.11 Acquired absence of right breast and nipple; G03.8 Meningitis due to other specified causes; I87.2 Venous insufficiency (chronic) (peripheral); I95.1 Orthostatic hypotension; Z86.73 Personal history of transient ischemic attack (TIA), and cerebral infarction without residual deficits; Z96.653 Presence of artificial knee joint, bilateral; Z86.19 Personal history of other infectious and parasitic diseases; Z98.41 Cataract extraction status, right eye; Z98.42 Cataract extraction status, left eye; Z90.710 Acquired absence of both cervix and uterus; Z98.890 Other specified postprocedural states; Z82.49 Family history of ischemic heart disease and other diseases of the circulatory system; Z88.8 Allergy status to other drugs, medicaments and biological substances; Z79.899 Other long term (current) drug therapy; Z79.82 Long term (current) use of aspirin; Z79.2 Long term (current) use of antibiotics
CPT/HCPCS: 36415; 70450; 70544; 70551; 80048; 80076; 82803; 83735; 83930; 84145; 84443; 85025; 87486; 87581; 87633; 87798; 93005; 93041; 93306; 94760; 96360; 96361; 96372; 97116; 97161; 97165; 99285; G0378

== ENCOUNTER → 2024-03-28 | Outpatient (REF) | payer MEDICARE, OTHER ==
[~2024-03-28] MED LIST changes: +MECL-86 PO
[2024-03-28 12:56] LABS: BASO % 0.7 % (0.0-1.0); EOS # 0.2 10^3/uL (0.0-0.5); EOS % 3.4 % (0.0-3.0); HEMATOCRIT 33.2 % (36.0-47.0); HEMOGLOBIN 10.3 g/dl (12.0-15.5); LYMPH # 1.1 10^3/uL (1.5-5.0); LYMPH % 24.5 % (24.0-44.0); MONO # 0.4 10^3/uL (0.0-0.8); MONO % 9.6 % (2.0-8.0); NEUTROPHILS # 2.7 10^3/uL (1.5-8.5); NEUTROPHILS % 61.6 % (36.0-66.0); PLATELET COUNT, AUTOMATED 260 10^3/uL (150-450); RED BLOOD COUNT 3.32 10^6/uL (4.00-5.40); WHITE BLOOD COUNT 4.4 10^3/uL (4.0-10.0)
[2024-03-28 13:16] LABS: ERYTHROCYTE SEDIMENTATION RATE 78 mm/hr (0-30)
== END ==
LOC: M SFHCCLAY 09:04
PROVIDERS: ATTEND Internal Medicine Infectious Disease
DX: A49.1 Streptococcal infection, unspecified site (principal)

== ENCOUNTER → 2024-04-25 | Outpatient (REF) | payer MEDICARE, OTHER ==
[2024-04-25 18:15] LABS: BASO % 0.8 % (0.0-1.0); EOS # 0.2 10^3/uL (0.0-0.5); EOS % 3.3 % (0.0-3.0); HEMATOCRIT 32.9 % (36.0-47.0); HEMOGLOBIN 10.5 g/dl (12.0-15.5); LYMPH # 1.4 10^3/uL (1.5-5.0); MEAN CORPUSCULAR HEMOGLOBIN 31.9 pg (27.0-33.0); MEAN CORPUSCULAR HGB CONC 31.9 g/dl (32.0-36.5); MONO # 0.5 10^3/uL (0.0-0.8); MONO % 10.1 % (2.0-8.0); NEUTROPHILS # 3.1 10^3/uL (1.5-8.5); NEUTROPHILS % 58.6 % (36.0-66.0); PLATELET COUNT, AUTOMATED 208 10^3/uL (150-450); RED BLOOD COUNT 3.29 10^6/uL (4.00-5.40); WHITE BLOOD COUNT 5.2 10^3/uL (4.0-10.0)
[2024-04-25 18:44] LABS: ALBUMIN 3.7 G/DL (3.2-5.2); BILIRUBIN,TOTAL 0.4 MG/DL (0.3-1.2); CALCIUM LEVEL 9.6 MG/DL (8.3-10.6); CREATININE FOR GFR 1.16 MG/DL (0.55-1.30); GLOMERULAR FILTRATION RATE 47.2 (>32); IMMUNOGLOBULIN A 57.1 MG/DL (40-350); POTASSIUM SERUM 4.4 MMOL/L (3.5-5.1); TOTAL PROTEIN 7.4 G/DL (5.7-8.2)
[2024-04-25 18:57] LABS: IMMUNOGLOBULIN M 843.3 MG/DL (50-300)
[2024-04-27 08:42] LABS: T P ELECTROPHORESIS SO 7.3 g/dL (6.1-8.1)
[2024-04-29 14:13] LABS: FREE KAPPA LIGHT CHAINS SERUM 43.6 mg/L (3.3-19.4); FREE LAMBDA LIGHT CHAINS SERUM 38.5 mg/L (5.7-26.3); KAPPA/LAMBDA RATIO SERUM 1.13 (0.26-1.65)
[2024-04-30 08:14] LABS: ALBUMIN SPEP 4.4 g/dL (3.8-4.8); ALPHA-1-GLOBULINS SO 0.3 g/dL (0.2-0.3); ALPHA-2-GLOBULINS SO 0.7 g/dL (0.5-0.9); BETA 2 GLOBULIN 0.6 g/dL (0.2-0.5); BETA-GLOBULIN SO 0.5 g/dL (0.4-0.6); GAMMA GLOBULINS SO 0.8 g/dL (0.8-1.7)
[2024-05-01 19:03] LABS: SERUM VISCOSITY 1.8 rel to H2O (1.5-1.9)
== END ==
LOC: M LABDRAWC 16:49
PROVIDERS: ATTEND Internal Medicine Medical Oncology
DX: C88.00 Waldenstrom macroglobulinemia not having achieved remission (principal); Z79.899 Other long term (current) drug therapy

== ENCOUNTER → 2024-06-12 | Outpatient (REF) | payer MEDICARE, OTHER ==
[2024-06-12 14:07] LABS: BASO % 0.8 % (0.0-1.0); EOS # 0.2 10^3/uL (0.0-0.5); EOS % 3.4 % (0.0-3.0); HEMATOCRIT 31.7 % (36.0-47.0); HEMOGLOBIN 10.1 g/dl (12.0-15.5); LYMPH # 1.1 10^3/uL (1.5-5.0); LYMPH % 23.8 % (24.0-44.0); MEAN CORPUSCULAR HEMOGLOBIN 32.1 pg (27.0-33.0); MEAN CORPUSCULAR HGB CONC 31.9 g/dl (32.0-36.5); MEAN CORPUSCULAR VOLUME 100.6 fl (80.0-96.0); MONO # 0.5 10^3/uL (0.0-0.8); MONO % 10.1 % (2.0-8.0); NEUTROPHILS # 2.9 10^3/uL (1.5-8.5); NEUTROPHILS % 61.7 % (36.0-66.0); PLATELET COUNT, AUTOMATED 254 10^3/uL (150-450); RED BLOOD COUNT 3.15 10^6/uL (4.00-5.40); WHITE BLOOD COUNT 4.7 10^3/uL (4.0-10.0)
[2024-06-12 14:11] LABS: C REACTIVE PROTEIN QUANTITATIV 0.82 MG/DL (<1.0); CREATININE FOR GFR 1.09 MG/DL (0.55-1.30); GLOMERULAR FILTRATION RATE 50.7 (>32); POTASSIUM SERUM 4.5 MMOL/L (3.5-5.1)
[2024-06-12 14:16] LABS: ERYTHROCYTE SEDIMENTATION RATE 79 mm/hr (0-30)
== END ==
LOC: M SFHCCLAY 08:52
PROVIDERS: ATTEND Internal Medicine Infectious Disease
DX: A49.1 Streptococcal infection, unspecified site (principal)

== ENCOUNTER → 2024-07-12 | Outpatient (REF) | payer MEDICARE, OTHER ==
[2024-07-12 18:31] LABS: BASO % 0.6 % (0.0-1.0); EOS # 0.1 10^3/uL (0.0-0.5); EOS % 2.5 % (0.0-3.0); HEMATOCRIT 32.3 % (36.0-47.0); HEMOGLOBIN 10.5 g/dl (12.0-15.5); LYMPH # 1.5 10^3/uL (1.5-5.0); LYMPH % 30.4 % (24.0-44.0); MEAN CORPUSCULAR HEMOGLOBIN 32.4 pg (27.0-33.0); MEAN CORPUSCULAR HGB CONC 32.5 g/dl (32.0-36.5); MEAN CORPUSCULAR VOLUME 99.7 fl (80.0-96.0); MONO # 0.5 10^3/uL (0.0-0.8); MONO % 9.3 % (2.0-8.0); NEUTROPHILS # 2.7 10^3/uL (1.5-8.5); NEUTROPHILS % 56.8 % (36.0-66.0); PLATELET COUNT, AUTOMATED 235 10^3/uL (150-450); RED BLOOD COUNT 3.24 10^6/uL (4.00-5.40); WHITE BLOOD COUNT 4.8 10^3/uL (4.0-10.0)
[2024-07-12 18:38] LABS: ERYTHROCYTE SEDIMENTATION RATE 75 mm/hr (0-30)
[2024-07-12 19:01] LABS: C REACTIVE PROTEIN QUANTITATIV 0.52 MG/DL (<1.0)
[2024-07-12 19:04] LABS: ALBUMIN 3.7 G/DL (3.2-5.2); BILIRUBIN,TOTAL 0.5 MG/DL (0.3-1.2); CALCIUM LEVEL 8.9 MG/DL (8.3-10.6); CHOLESTEROL RISK RATIO 3.77 (<5); CREATININE FOR GFR 1.51 MG/DL (0.55-1.30); GLOMERULAR FILTRATION RATE 33.5 (>32); HDL CHOLESTEROL 63.6 MG/DL (>40); LDL CHOLESTEROL 153.8 MG/DL (<100); NON-HDL-C 176.4 MG/DL; POTASSIUM SERUM 4.5 MMOL/L (3.5-5.1); TOTAL PROTEIN 7.1 G/DL (5.7-8.2)
== END ==
LOC: M LABDRAWC 17:51
PROVIDERS: ATTEND Internal Medicine
DX: N18.32 Chronic kidney disease, stage 3b (principal); T84.54XA Infection and inflammatory reaction due to internal left knee prosthesis, initial encounter; D63.1 Anemia in chronic kidney disease

== ENCOUNTER → 2024-07-26 | Outpatient (REF) | payer MEDICARE, OTHER ==
[2024-07-26 14:16] LABS: CALCIUM LEVEL 9.1 MG/DL (8.3-10.6); CREATININE FOR GFR 1.12 MG/DL (0.55-1.30); GLOMERULAR FILTRATION RATE 47.9 (>32); POTASSIUM SERUM 4.4 MMOL/L (3.5-5.1)
== END ==
LOC: M LABDRAWC 13:12
PROVIDERS: ATTEND Internal Medicine
DX: R42 Dizziness and giddiness (principal)

== ENCOUNTER → 2024-10-21 | Outpatient (REF) | payer MEDICARE, OTHER ==
[2024-10-21 19:16] LABS: ALT/SGPT 36.0 U/L (7.0-40); AST/SGOT 40.0 U/L (<34); CALCIUM LEVEL 8.7 MG/DL (8.3-10.6); CARBON DIOXIDE LEVEL 23.0 MMOL/L (20-31); CHLORIDE LEVEL 99.0 MMOL/L (98-107); CREATININE FOR GFR 1.4 MG/DL (0.55-1.30); GLOMERULAR FILTRATION RATE 36.6 (>32); POTASSIUM SERUM 4.8 MMOL/L (3.5-5.1); SODIUM LEVEL 134.0 MMOL/L (136-145)
[2024-10-21 19:17] LABS: IRON (FE) 79.0 UG/DL (50-170); PERCENT SATURATION 26.8 % (13.2-45.0)
[2024-10-21 19:19] LABS: BASO # 0.0 10^3/uL (0.0-0.2); BASO % 0.5 % (0.0-1.0); EOS # 0.1 10^3/uL (0.0-0.5); EOS % 1.3 % (0.0-3.0); LYMPH # 1.4 10^3/uL (1.5-5.0); LYMPH % 22.4 % (24.0-44.0); MONO # 0.5 10^3/uL (0.0-0.8); MONO % 7.6 % (2.0-8.0); NEUTROPHILS # 4.2 10^3/uL (1.5-8.5); NEUTROPHILS % 67.9 % (36.0-66.0); PLATELET COUNT, AUTOMATED 220 10^3/uL (150-450)
[2024-10-23 07:47] LABS: T P ELECTROPHORESIS SO 6.8 g/dL (6.1-8.1)
[2024-10-24 13:43] LABS: FREE KAPPA LIGHT CHAINS SERUM 40.6 mg/L (3.3-19.4); FREE LAMBDA LIGHT CHAINS SERUM 40.5 mg/L (5.7-26.3); KAPPA/LAMBDA RATIO SERUM 1.00 (0.26-1.65)
[2024-10-25 06:42] LABS: ALBUMIN SPEP 4.1 g/dL (3.8-4.8); ALPHA-1-GLOBULINS SO 0.3 g/dL (0.2-0.3); ALPHA-2-GLOBULINS SO 0.7 g/dL (0.5-0.9); BETA 2 GLOBULIN 0.5 g/dL (0.2-0.5); BETA-GLOBULIN SO 0.5 g/dL (0.4-0.6); GAMMA GLOBULINS SO 0.7 g/dL (0.8-1.7)
[2024-10-26 00:38] LABS: SERUM VISCOSITY 1.9 rel to H2O (1.5-1.9)
== END ==
LOC: M LABDRAWC 17:06
PROVIDERS: ATTEND Internal Medicine Medical Oncology
DX: C88.00 Waldenstrom macroglobulinemia not having achieved remission (principal); Z79.899 Other long term (current) drug therapy; D53.1 Other megaloblastic anemias, not elsewhere classified

== ENCOUNTER → 2024-10-23 | Outpatient (REF) | payer MEDICARE, OTHER ==
[2024-10-23 17:26] LABS: BASO # 0.0 10^3/uL (0.0-0.2); BASO % 0.5 % (0.0-1.0); EOS # 0.1 10^3/uL (0.0-0.5); EOS % 1.6 % (0.0-3.0); LYMPH # 1.6 10^3/uL (1.5-5.0); LYMPH % 28.6 % (24.0-44.0); MONO # 0.5 10^3/uL (0.0-0.8); MONO % 8.7 % (2.0-8.0); NEUTROPHILS # 3.4 10^3/uL (1.5-8.5); NEUTROPHILS % 60.4 % (36.0-66.0); PLATELET COUNT, AUTOMATED 250 10^3/uL (150-450)
[2024-10-23 17:41] LABS: ERYTHROCYTE SEDIMENTATION RATE 57 mm/hr (0-30)
[2024-10-23 18:00] LABS: C REACTIVE PROTEIN QUANTITATIV < 0.50 MG/DL (<1.0); IRON (FE) 80 UG/DL (50-170)
[2024-10-23 18:01] LABS: PERCENT SATURATION 27.3 % (13.2-45.0); VITAMIN B12 LEVEL 954 PG/ML (211-911)
== END ==
LOC: M SFHCCLAY 14:09
PROVIDERS: ATTEND Internal Medicine Infectious Disease
DX: A49.1 Streptococcal infection, unspecified site (principal); D64.9 Anemia, unspecified

== ENCOUNTER 2024-11-09 18:43 | Observation (INO) | payer MEDICARE, OTHER ==
[~2024-11-09] VITALS: Ht 165.1 cm; Wt 59.1 kg
[2024-11-09 19:28] LABS: BASO # 0.0 10^3/uL (0.0-0.2); BASO % 0.6 % (0.0-1.0); EOS # 0.1 10^3/uL (0.0-0.5); EOS % 1.7 % (0.0-3.0); LYMPH # 1.4 10^3/uL (1.5-5.0); LYMPH % 26.5 % (24.0-44.0); MONO # 0.7 10^3/uL (0.0-0.8); MONO % 12.7 % (2.0-8.0); NEUTROPHILS # 3.0 10^3/uL (1.5-8.5); NEUTROPHILS % 58.1 % (36.0-66.0); PLATELET COUNT, AUTOMATED 248 10^3/uL (150-450)
[2024-11-09 19:56] LABS: CALCIUM LEVEL 9.0 MG/DL (8.3-10.6); CARBON DIOXIDE LEVEL 22.0 MMOL/L (20-31); CHLORIDE LEVEL 101.0 MMOL/L (98-107); CREATININE FOR GFR 1.2 MG/DL (0.55-1.30); GLOMERULAR FILTRATION RATE 44.1 (>32); POTASSIUM SERUM 5.0 MMOL/L (3.5-5.1); SODIUM LEVEL 136.0 MMOL/L (136-145)
[2024-11-09 21:37] LABS: MAGNESIUM LEVEL 1.9 MG/DL (1.8-2.4)
[2024-11-09 21:38] LABS: CK-MB VALUE MASS 1.8 NG/ML (<3.6)
[2024-11-09 21:39] LABS: CPK CREATINE PHOSPHOKINASE 51.0 U/L (34-145); MB/CK RELATIVE INDEX 3.52 (< OR =4)
[2024-11-09 21:55] VITALS: BP 181/104
[2024-11-09] MEDS: amLODIPine 5 MG TAB PO ONE (21:55)
[2024-11-09] MEDS: cefTRIAXone SOD 1 GM in DEXTROSE 5% (D5W) ADV/MINI-BAG 50 ML IV ONE (23:13)
[2024-11-10] MEDS ORDERED: HYDR1CRE30 TOP (03:18)
[2024-11-10] MEDS ORDERED: TORS10TA3 PO (03:18)
[2024-11-10] MEDS ORDERED: LEVO1TAB40 PO ×2 (03:18→14:30)
[2024-11-10] MEDS ORDERED: NITR100C2 PO (03:18)
[2024-11-10] MEDS ORDERED: HOME MED LIST COMPLETE! XX SCH (03:25)
[2024-11-10] MEDS ORDERED: MOM 30 ML SUSPENSION UDC PO PRN (03:50)
[2024-11-10 07:24] LABS: PLATELET COUNT, AUTOMATED 247 10^3/uL (150-450)
[2024-11-10 07:36] LABS: INR 0.96
[2024-11-10] MEDS: ENOXAPARIN 40 MG/0.4 ML SYRINGE (J1650 PER 10MG) SC SCH (08:06)
[2024-11-10 08:53] LABS: ALT/SGPT 24.0 U/L (7.0-40); AST/SGOT 23.0 U/L (<34); CALCIUM LEVEL 9.4 MG/DL (8.3-10.6); CARBON DIOXIDE LEVEL 23.0 MMOL/L (20-31); CHLORIDE LEVEL 103.0 MMOL/L (98-107); CREATININE FOR GFR 1.02 MG/DL (0.55-1.30); GLOMERULAR FILTRATION RATE 53.6 (>32); MAGNESIUM LEVEL 1.9 MG/DL (1.8-2.4); POTASSIUM SERUM 4.2 MMOL/L (3.5-5.1); SODIUM LEVEL 139.0 MMOL/L (136-145)
[2024-11-10] MEDS ORDERED: CEFADROXIL 500 MG PO SCH (09:00)
[2024-11-10 15:23] VITALS: BP 134/67; TEMP 97.5
[2024-11-10] MEDS: MAALOX 30 ML SUSP *UDC PO PRN (16:40)
[2024-11-10] MEDS: ACETAMINOPHEN 325 MG TAB PO PRN (16:40)
[2024-11-10 19:43] VITALS: BP 150/77; TEMP 98.1
[2024-11-10 20:00] VITALS: O2SAT 96
[2024-11-10] MEDS: CLOTRIMAZOLE 1% VAG CR 45 GM PV SCH (21:00)
[2024-11-11] VITALS: BP 148/76; TEMP 97.2; O2SAT 98
[2024-11-11 04:00] VITALS: BP 138/76; TEMP 97.9; O2SAT 99
[2024-11-11 06:32] LABS: PLATELET COUNT, AUTOMATED 230 10^3/uL (150-450)
[2024-11-11 07:03] LABS: ALT/SGPT 22.0 U/L (7.0-40); AST/SGOT 22.0 U/L (<34); CALCIUM LEVEL 9.3 MG/DL (8.3-10.6); CARBON DIOXIDE LEVEL 23.0 MMOL/L (20-31); CHLORIDE LEVEL 102.0 MMOL/L (98-107); CREATININE FOR GFR 1.08 MG/DL (0.55-1.30); GLOMERULAR FILTRATION RATE 50.0 (>32); MAGNESIUM LEVEL 2.0 MG/DL (1.8-2.4); POTASSIUM SERUM 4.7 MMOL/L (3.5-5.1); SODIUM LEVEL 136.0 MMOL/L (136-145)
[2024-11-11 07:47] VITALS: BP 117/58; TEMP 97.9; O2SAT 98
[2024-11-11] MEDS ORDERED: LIDOCAINE 2% 100 MG/5 ML SDV (FOR ANES.) As Ordered ONE (09:13)
== END 2024-11-11 13:02 | disposition home or self-care (01) ==
LOC: EDBD 18:43 → M ED 18:43 → M ED INP 18:44 → M MSPAV 11-10 15:23
PROVIDERS: ADMIT Student in an Organized Health Care Education/Training Program; ATTEND Student in an Organized Health Care Education/Training Program
DX: I44.30 Unspecified atrioventricular block (principal); R26.89 Other abnormalities of gait and mobility; R53.81 Other malaise; R42 Dizziness and giddiness; I10 Essential (primary) hypertension; D53.9 Nutritional anemia, unspecified; T84.54XS Infection and inflammatory reaction due to internal left knee prosthesis, sequela; Y79.2 Prosthetic and other implants, materials and accessory orthopedic devices associated with adverse incidents; B95.4 Other streptococcus as the cause of diseases classified elsewhere; Z79.2 Long term (current) use of antibiotics; Z85.3 Personal history of malignant neoplasm of breast; B37.31 Acute candidiasis of vulva and vagina; M48.061 Spinal stenosis, lumbar region without neurogenic claudication; M84.48XK Pathological fracture, other site, subsequent encounter for fracture with nonunion; M19.90 Unspecified osteoarthritis, unspecified site; R31.29 Other microscopic hematuria; Z96.653 Presence of artificial knee joint, bilateral; Z87.440 Personal history of urinary (tract) infections; Z90.11 Acquired absence of right breast and nipple; Z90.79 Acquired absence of other genital organ(s); Z98.49 Cataract extraction status, unspecified eye; Z82.49 Family history of ischemic heart disease and other diseases of the circulatory system; Z88.8 Allergy status to other drugs, medicaments and biological substances; Z79.899 Other long term (current) drug therapy; Z79.82 Long term (current) use of aspirin
CPT/HCPCS: 36415; 70450; 71045; 72131; 80048; 80053; 82550; 82553; 83605; 83735; 83880; 84145; 84484; 85025; 85027; 85610; 87086; 93005; 96372; 96374; 97116; 97161; 97530; 99285; G0378; J0696; J1650; J3010

== ENCOUNTER → 2024-11-11 | Outpatient (CLI) | payer MEDICARE, OTHER ==
[~2024-11-11] MED LIST changes: +HYDR1CRE30 TOP; +LEVO1TAB40 PO; +NITR100C2 PO
== END ==
LOC: M EKG 13:24
PROVIDERS: ATTEND Student in an Organized Health Care Education/Training Program
DX: I44.1 Atrioventricular block, second degree (principal); Z53.9 Procedure and treatment not carried out, unspecified reason

== ENCOUNTER → 2024-12-16 | Outpatient (REF) | payer MEDICARE, OTHER ==
[~2024-12-16] MED LIST changes: -EZET10TA21 PO; +EZET10TA57 PO
[2024-12-16 19:03] LABS: APPEARANCE, URINE HAZY (CLEAR); BACTERIA, URINE AUTO NEGATIVE (NEGATIVE); BILIRUBIN, URINE AUTO NEGATIVE (NEGATIVE); BLOOD, URINE BLOOD NEGATIVE (NEGATIVE); GLUCOSE, URINE (UA) AUTO NEGATIVE (NEGATIVE); KETONE, URINE AUTO NEGATIVE (NEGATIVE); LEUKOCYTE ESTERASE, URINE AUTO 2+ (NEGATIVE); MUCUS, URINE SMALL (NEGATIVE); NITRITE, URINE AUTO NEGATIVE (NEGATIVE); PROTEIN, URINE AUTO NEGATIVE (NEGATIVE); RBC, URINE AUTO 2 /HPF (0-3); SPECIFIC GRAVITY URINE AUTO 1.012 (1.002-1.035); SQUAMOUS EPITHELIAL CELL UR AU 0 /HPF (0-6); UROBILINOGEN, URINE AUTO 0.2 mg/dL (0.0-2.0); WBC, URINE AUTO 21 /HPF (0-3)
== END ==
LOC: M LAB REF 17:24
PROVIDERS: ATTEND Internal Medicine
DX: R30.0 Dysuria (principal)

== ENCOUNTER → 2025-01-13 | Outpatient (REF) | payer MEDICARE, OTHER | LOC: M LAB REF 14:17 | PROVIDERS: ATTEND Nurse Practitioner Adult Health | DX: N39.0 Urinary tract infection, site not specified (principal) ==

== ENCOUNTER → 2025-01-16 | Outpatient (REF) | payer MEDICARE, OTHER ==
[2025-01-16 20:06] LABS: BASO # 0.0 10^3/uL (0.0-0.2); BASO % 0.7 % (0.0-1.0); EOS # 0.3 10^3/uL (0.0-0.5); EOS % 4.8 % (0.0-3.0); LYMPH # 1.5 10^3/uL (1.5-5.0); LYMPH % 26.7 % (24.0-44.0); MONO # 0.5 10^3/uL (0.0-0.8); MONO % 8.9 % (2.0-8.0); NEUTROPHILS # 3.3 10^3/uL (1.5-8.5); NEUTROPHILS % 58.5 % (36.0-66.0); PLATELET COUNT, AUTOMATED 230 10^3/uL (150-450)
[2025-01-16 20:32] LABS: ALT/SGPT 30.0 U/L (7.0-40); AST/SGOT 26.0 U/L (<34); CALCIUM LEVEL 9.0 MG/DL (8.3-10.6); CARBON DIOXIDE LEVEL 26.0 MMOL/L (20-31); CHLORIDE LEVEL 100.0 MMOL/L (98-107); CREATININE FOR GFR 1.09 MG/DL (0.55-1.30); GLOMERULAR FILTRATION RATE 49.5 (>32); IRON (FE) 78.0 UG/DL (50-170); PERCENT SATURATION 25.9 % (13.2-45.0); POTASSIUM SERUM 4.3 MMOL/L (3.5-5.1); SODIUM LEVEL 137.0 MMOL/L (136-145)
[2025-01-18 07:29] LABS: T P ELECTROPHORESIS SO 6.9 g/dL (6.1-8.1)
[2025-01-20 10:08] LABS: ERYTHROPOIETIN 11.5 mIU/mL (2.6-18.5)
[2025-01-20 15:22] LABS: FREE KAPPA LIGHT CHAINS SERUM 38.7 mg/L (3.3-19.4); FREE LAMBDA LIGHT CHAINS SERUM 38.5 mg/L (5.7-26.3); KAPPA/LAMBDA RATIO SERUM 1.01 (0.26-1.65)
[2025-01-21 07:26] LABS: ALBUMIN SPEP 4.1 g/dL (3.8-4.8); ALPHA-1-GLOBULINS SO 0.3 g/dL (0.2-0.3); ALPHA-2-GLOBULINS SO 0.7 g/dL (0.5-0.9); BETA 2 GLOBULIN 0.6 g/dL (0.2-0.5); BETA-GLOBULIN SO 0.5 g/dL (0.4-0.6); GAMMA GLOBULINS SO 0.7 g/dL (0.8-1.7)
[2025-01-21 16:32] LABS: SERUM VISCOSITY 1.8 rel to H2O (1.5-1.9)
== END ==
LOC: M LABDRAWC 17:31
PROVIDERS: ATTEND Internal Medicine Medical Oncology
DX: D64.9 Anemia, unspecified (principal); C88.00 Waldenstrom macroglobulinemia not having achieved remission; E78.00 Pure hypercholesterolemia, unspecified; Z13.31 Encounter for screening for depression

== ENCOUNTER → 2025-01-16 | Outpatient (REF) | payer MEDICARE, OTHER ==
[2025-01-16 20:06] LABS: BASO # 0.1 10^3/uL (0.0-0.2); BASO % 0.9 % (0.0-1.0); EOS # 0.3 10^3/uL (0.0-0.5); EOS % 5.1 % (0.0-3.0); LYMPH # 1.5 10^3/uL (1.5-5.0); LYMPH % 26.4 % (24.0-44.0); MONO # 0.5 10^3/uL (0.0-0.8); MONO % 7.9 % (2.0-8.0); NEUTROPHILS # 3.4 10^3/uL (1.5-8.5); NEUTROPHILS % 59.5 % (36.0-66.0); PLATELET COUNT, AUTOMATED 235 10^3/uL (150-450)
[2025-01-16 20:32] LABS: ALT/SGPT 30.0 U/L (7.0-40); AST/SGOT 27.0 U/L (<34); CALCIUM LEVEL 9.1 MG/DL (8.3-10.6); CARBON DIOXIDE LEVEL 27.0 MMOL/L (20-31); CHLORIDE LEVEL 99.0 MMOL/L (98-107); CREATININE FOR GFR 1.09 MG/DL (0.55-1.30); GLOMERULAR FILTRATION RATE 49.5 (>32); POTASSIUM SERUM 4.3 MMOL/L (3.5-5.1); SODIUM LEVEL 137.0 MMOL/L (136-145)
== END ==
LOC: M LABDRAWC 17:30
PROVIDERS: ATTEND Internal Medicine
DX: E78.00 Pure hypercholesterolemia, unspecified (principal); Z13.31 Encounter for screening for depression